=== PATIENT | female | born 2005 | race Caucasian/White ===

== ENCOUNTER 2024-11-03 15:34 | Emergency (ER) | payer OTHER, SELFPAY ==
[2024-11-03 15:49] VITALS: BP 117/74; PULSE 99; TEMP 36.8; O2SAT 100; BMI 19.9
[2024-11-03 16:28] LABS: Basophils Absolute Auto 0.1 10^3/uL (0.0-0.1); Basophils Percent Auto 0.6 % (0.2-2.0); Eosinophils Absolute Auto 0.1 10^3/uL (0.0-0.7); Eosinophils Percent Auto 1.2 % (0.9-7.0); Hematocrit 36.9 % (36.0-48.0); Immature Granulocytes Abs Auto 0.03 10^3/uL (0.00-0.03); Immature Granulocytes Pct Auto 0.3 % (0.0-0.5); Lymphocytes Absolute Auto 2.3 10^3/uL (1.2-3.8); Lymphocytes Percent Auto 21.4 % (20.5-60.0); Mean Corpuscular HGB Conc 32.5 g/dL (29.9-35.2); Mean Corpuscular Hemoglobin 29.4 pg (26.7-34.0); Mean Corpuscular Volume 90.4 fL (81.0-99.0); Mean Platelet Volume 10.6 fL (9.5-13.5); Monocytes Absolute Auto 0.7 10^3/uL (0.3-0.8); Monocytes Percent Auto 6.3 % (1.7-12.0); Neutrophils Absolute Auto 7.6 10^3/uL (1.4-6.5); Neutrophils Percent Auto 70.2 % (43.0-75.0); Platelet Count 281 10^3/uL (150-450); Red Blood Count 4.08 10^6/uL (4.20-5.40); Red Cell Distribution Width 12.3 % (11.0-15.0); White Blood Count 10.8 10^3/uL (4.0-11.0)
[2024-11-03 16:33] LABS: Bilirubin Urine NEGATIVE (NEGATIVE); Blood Urine LARGE (NEGATIVE); Clarity Urine CLOUDY (CLEAR); Color Urine LT. YELLOW (YELLOW); Glucose Urine UA NEGATIVE (NEGATIVE); Ketones Urine NEGATIVE (NEGATIVE); Leukocyte Esterase Urine SMALL (NEGATIVE); Nitrite Urine NEGATIVE (NEGATIVE); Protein Urine 100 mg/dL (NEG/TRACE); Specific Gravity Urine 1.025 (1.005-1.025)
[2024-11-03 16:39] LABS: HCG Qualitative Urine* NEGATIVE (NEGATIVE); Internal Control Within Normal Limits
[2024-11-03 16:44] LABS: WBC Urine 50-75 #/HPF (NONE SEEN)
[2024-11-03] MEDS: ONDANSETRON PF 4 MG/2 ML VIAL IV (16:44)
[2024-11-03 16:45] LABS: Bacteria Urine SMALL #/HPF (NONE SEEN); Cast Seen? NONE SEEN #/LPF (NONE SEEN); Crystals Seen? None Seen #/HPF (None Seen); Mucus Urine NONE SEEN (NONE SEEN); Squamous Epithelial Cell Urine NONE SEEN #/LPF (NONE/RARE); Urine Culture Indicated YES
[2024-11-03 16:48] LABS: Alanine Aminotransferase 15 U/L (14-59); Albumin Level 3.7 g/dL (3.4-5.0); Alkaline Phosphatase 96 U/L (46-116); Anion Gap 10.1; Aspartate Amino Transferase 12 U/L (15-37); BUN Creatinine Ratio 10.8; Bilirubin Total 0.3 mg/dL (0.2-1.0); Calcium 9.1 mg/dL (8.5-10.1); Carbon Dioxide 29.8 mmol/L (21.0-32.0); Chloride 102 mmol/L (98-107); Estimated GFR (African America >60 (>=60 mL/min/1.73m^2); Estimated GFR (Non-African Ame >60 (>=60 mL/min/1.73m^2); Globulin 3.8 g/dL; Glucose 92 mg/dL (74-106); Potassium 3.9 mmol/L (3.5-5.1); Sodium 138 mmol/L (136-145); Total Protein 7.5 g/dL (6.4-8.2)
--- NOTE | 2024-11-03 16:53 | ED_ITS ---
HPI HPI - General Adult General Chief complaint: Urogenital-Female Stated complaint: POSS UTI Time Seen by Provider: 11/03/24 15:40 Source: patient Mode of arrival: ambulance Limitations: no limitations History of Present Illness HPI narrative: 18-year-old female presents here with chief complaint of continued urinary symptoms. She had recently treated with for UTI with Macrobid. Was seen and evaluated and sent to our emergency room today from urgent care. Patient has no flank pain or tenderness on examination has no fevers. She has had some nausea from not eating earlier today. She is not toxic appearing and is not febrile. Denies a known history of states she has not been currently sexually active. patient states recently completed menses and denies vaginal discharge Related Data Previous Rx's ?Medication ?Instructions ?Recorded cephalexin 500 mg capsule 500 mg PO BID 10 days #20 caps 11/03/24 ondansetron 4 mg disintegrating 4 mg PO TID PRN nausea and 11/03/24 tablet vomiting 3 days #10 tabs Allergies Allergy/AdvReac Type Severity Reaction Status Date / Time No Known Drug Allergies Allergy Verified 11/03/24 15:55 Opioid HPI Opioid Management Most Recent Opioid Data: No Data to Display Review of Systems ROS Narrative All Systems are negative except as noted/marked.All systems reviewed and otherwise negative Exam Narrative Exam Narrative: Nurses note and vital signs reviewed and patient is not hypoxic. General: The patient appears well and in no apparent distress. Patient is resting comfortably on cart. Skin: Warm, dry, no pallor noted. There is no rash noted. Head: Normocephalic, atraumatic Eye: Normal conjunctiva, no drainage, EOMI. PERRL Ears, Nose, Mouth, and Throat: oral mucosa is moist. Nares patent. Mouth without vesicles. Ear canals patent. Tm's without Erythema Cardiovascular: Regular Rate and Rhythm Respiratory: Patient is in no distress, no accessory muscle use, lungs are clear to auscultation, no wheezing, rales or rhonchi Back: non-tender, no CVA tenderness bilaterally to percussion. GI: Normal bowel sounds, no tenderness to palpation, no masses appreciated. No rebound, guarding, or rigidity noted. Musculoskeletal: The patient has no evidence of calf tenderness, no pitting edema, symmetrical pulses noted bilaterally Neurological: A&O x4, normal speech Psychiatric: Cooperative Constitutional Vital Signs, click to edit/add: Last Vital Signs Temp 98.2 F 11/03/24 15:49 Pulse 99 H 11/03/24 15:49 Resp 16 11/03/24 15:49 BP 117/74 11/03/24 15:49 Pulse Ox 100 11/03/24 15:49 O2 Del Method Room Air 11/03/24 15:49 Course Vital Signs Vital signs: Vital Signs Temperature 98.2 F 11/03/24 15:49 Pulse Rate 99 H 11/03/24 15:49 Respiratory Rate 16 11/03/24 15:49 Blood Pressure 117/74 11/03/24 15:49 Pulse Oximetry 100 11/03/24 15:49 Oxygen Delivery Method Room Air 11/03/24 15:49 Temperature 98.2 F 11/03/24 15:49 Pulse Rate 99 H 11/03/24 15:49 Respiratory Rate 16 11/03/24 15:49 Blood Pressure 117/74 11/03/24 15:49 Pulse Oximetry 100 11/03/24 15:49 Oxygen Delivery Method Room Air 11/03/24 15:49 Medical Decision Making MDM Narrative Medical decision making narrative: 18-year-old female presents here with chief complaint of continued urinary symptoms. She had recently treated with for UTI with Macrobid. Was seen and evaluated and sent to our emergency room today from urgent care. Patient has no flank pain or tenderness on examination has no fevers. She has had some nausea from not eating earlier today. She is not toxic appearing and is not febrile. Denies a known history of states she has not been currently sexually active. patient states recently completed menses and denies vaginal discharge Positive for red blood cells as well as 10-75 WBCs. Patient placed on Macrobid previously. We will change her antibiotic to Keflex. Reasons to return to the emergency room were discussed patient also be given a prescription for Zofran. She is able to eat and drink here in the emergency room does not appear toxic. Lab work is reviewed and shows no acute abnormalities. CBC and CMP. Mom is at bedside agrees with plan of care. Differential Diagnosis Differential Diagnosis: uti, kidney stone Medical Records Medical records reviewed: Yes I reviewed the patient's medical records Lab Data Lab results reviewed: Yes I reviewed the patient's lab results Labs: Lab Results 12/06/24 12/06/24 Range/Units 16:11 16:14 WBC 10.8 (4.0-11.0) 10^3/uL RBC 4.08 L (4.20-5.40) 10^6/uL Hgb 12.0 (12.0-16.0) g/dL Hct 36.9 (36.0-48.0) % MCV 90.4 (81.0-99.0) fL MCH 29.4 (26.7-34.0) pg MCHC 32.5 (29.9-35.2) g/dL RDW 12.3 (11.0-15.0) % Plt Count 281 (150-450) 10^3/uL MPV 10.6 (9.5-13.5) fL Neut % (Auto) 70.2 (43.0-75.0) % Lymph % (Auto) 21.4 (20.5-60.0) % [place] % (Auto) 6.3 (1.7-12.0) % Eos % (Auto) 1.2 (0.9-7.0) % Baso % (Auto) 0.6 (0.2-2.0) % Neut # (Auto) 7.6 H (1.4-6.5) 10^3/uL Lymph # (Auto) 2.3 (1.2-3.8) 10^3/uL [place] # (Auto) 0.7 (0.3-0.8) 10^3/uL Eos # (Auto) 0.1 (0.0-0.7) 10^3/uL Baso # (Auto) 0.1 (0.0-0.1) 10^3/uL Abs Immat Gran (auto) 0.03 (0.00-0.03) 10^3/uL Imm/Tot Granulo (auto) 0.3 (0.0-0.5) % Sodium 138 (136-145) mmol/L Potassium 3.9 (3.5-5.1) mmol/L Chloride 102 (98-107) mmol/L Carbon Dioxide 29.8 (21.0-32.0) mmol/L Anion Gap 10.1 BUN 9.0 (6.4-19.3) mg/dL Creatinine 0.83 (0.55-1.02) mg/dL Est GFR ( Amer) >60 (>=60 mL/min/1.73m^2) Est GFR (Non-Af Amer) >60 (>=60 mL/min/1.73m^2) BUN/Creatinine Ratio 10.8 Glucose 92 (74-106) mg/dL Calcium 9.1 (8.5-10.1) mg/dL Total Bilirubin 0.3 (0.2-1.0) mg/dL AST 12 L (15-37) U/L ALT 15 (14-59) U/L Alkaline Phosphatase 96 (46-116) U/L Total Protein 7.5 (6.4-8.2) g/dL Albumin 3.7 (3.4-5.0) g/dL Globulin 3.8 g/dL Albumin/Globulin Ratio 1.0 Urine Color Lt. yellow (YELLOW) Urine Clarity Cloudy A (CLEAR) Urine pH 6.0 (5.0-9.0) Ur Specific [place] 1.025 (1.005-1.025) Urine Protein 100 A (NEG/TRACE) mg/dL Urine Glucose (UA) Negative (NEGATIVE) mg/dL Urine Ketones Negative (NEGATIVE) mg/dL Urine Occult Blood Large A (NEGATIVE) Urine Nitrite Negative (NEGATIVE) Urine Bilirubin Negative (NEGATIVE) Urine Urobilinogen 1.0 (0.2-1.0) EU/dL Ur Leukocyte Esterase Small A (NEGATIVE) Urine RBC 10-20 A (0-2) #/HPF Urine WBC 50-75 A (NONE SEEN) #/HPF Ur Squamous Epith Cells None seen (NONE/RARE) #/LPF Urine Crystals None seen (None Seen) #/HPF Urine Bacteria Small A (NONE SEEN) #/HPF Urine Casts None seen (NONE SEEN) #/LPF Urine Mucus None seen (NONE SEEN) Ur Culture Indicated? Yes Urine HCG, Qual Negative (NEGATIVE) Discharge Plan Discharge Chief Complaint: Urogenital-Female Clinical Impression: Urinary tract infection Patient Disposition: Home, Self-Care Time of Disposition Decision: 16:51 Condition: Good Prescriptions / Home Meds: New cephalexin 500 mg capsule 500 mg PO BID 10 Days Qty: 20 0RF ondansetron 4 mg tablet,disintegrating 4 mg PO TID PRN (Reason: nausea and vomiting) 3 Days Qty: 10 0RF Print Language: Greenlandic Instructions: Urinary Tract Infection in Women (ED) Referrals: Physician,Non-Staff, MD [Primary Care Provider] - 1 week
[2024-11-03] MEDS: KETOROLAC TROMETHAMINE 30 MG/ML VIAL IVP (17:01)
[2024-11-03 17:10] VITALS: BP 110/83; PULSE 82; O2SAT 100
== END 2024-11-03 17:11 | disposition home or self-care (01) ==
PROVIDERS: Physician Assistant; Emergency Provider Emergency Medicine; PCP Internal Medicine
DX: N39.0 Urinary tract infection, site not specified (principal)
CPT/HCPCS: 36415; 80053; 81001; 84703; 85025; 87086; 96374; 96375; 99284; J1885; J2405

== ENCOUNTER 2025-10-23 12:18 | Emergency (ER) | payer OTHER, SELFPAY ==
[2025-10-23 12:29] VITALS: BP 116/75; PULSE 102; TEMP 36.8; O2SAT 100; BMI 21.0
--- NOTE | 2025-10-23 12:50 | ED_ITS ---
HPI HPI - General Adult General Chief complaint: Abdominal Pain Stated complaint: 6 WEEKS BACK PAIN VOMITING Time Seen by Provider: 10/23/25 12:30 Source: patient Mode of arrival: walk-in Limitations: no limitations History of Present Illness HPI narrative: 19-year-old female presented to the emergency department for not feeling well. She is , 6 weeks. She has had some nausea and vomiting and has left lower back pain. No trauma. No vaginal bleeding. She has felt this way for the last day or 2. She is 1 para 0. Related Data Home Medications ?Medication ?Instructions ?Recorded ?Confirmed No Known Home Medications 10/23/2509/30 Allergies Allergy/AdvReac Type Severity Reaction Status Date / Time No Known Drug Allergies Allergy Verified 10/23/25 12:29 Opioid HPI Opioid Management Most Recent Opioid Data: Last Pain Scale 8 Today, 12:29 Review of Systems ROS Narrative A ten point review of systems is negative except as noted above. PFSH PFSH Social History Little interest or pleasure in doing things: not at all Feeling down, depressed, or hopeless: not at all Exam Narrative Exam Narrative: Nurses note and vital signs reviewed General:The patient appears uncomfortable. Skin:Warm, dry, no pallor noted.There is no rash noted. Head:Normocephalic, atraumatic Eye: Normal conjunctiva, no drainage Ears, Nose, Mouth, and Throat: oral mucosa is moist. Nares patent. Cardiovascular:Regular Rate and Rhythm Respiratory:Patient is in no distress, no accessory muscle use, lungs are clear to auscultation, no wheezing, rales or rhonchi Back:non-tender, no CVA tenderness bilaterally to percussion. GI: Soft and nondistended. No focal area of tenderness Musculoskeletal: No joint swelling Neurological:A&O normal speech Psychiatric:Cooperative Constitutional Vital Signs, click to edit/add: Last Vital Signs Temp 98.3 F 10/23/25 12:29 Pulse 102 H 10/23/25 12:29 Resp 16 10/23/25 12:29 BP 116/75 10/23/25 12:29 Pulse Ox 100 10/23/25 12:29 O2 Del Method Room Air 10/23/25 12:29 Course Vital Signs Vital signs: Vital Signs Temperature 98.3 F 10/23/25 12:29 Pulse Rate 102 H 10/23/25 12:29 Respiratory Rate 16 10/23/25 12:29 Blood Pressure 116/75 10/23/25 12:29 Pulse Oximetry 100 10/23/25 12:29 Oxygen Delivery Method Room Air 10/23/25 12:29 Temperature 98.3 F 10/23/25 12:29 Pulse Rate 102 H 10/23/25 12:29 Respiratory Rate 16 10/23/25 12:29 Blood Pressure 116/75 10/23/25 12:29 Pulse Oximetry 100 10/23/25 12:29 Oxygen Delivery Method Room Air 10/23/25 12:29 Medical Decision Making MDM Narrative Medical decision making narrative: The patient presented with flank pain and she has microscopic hematuria. Concern was for a kidney stone so renal ultrasound was performed because she is , approximately 6 weeks. The ultrasound is negative. She has no bleeding and I have no concern for ectopic or for miscarriage. She has no abdominal tenderness on palpation. She is feeling improved with the Zofran and the IV fluids given here and she is discharged home with a prescription for Zofran. Findings are discussed with the patient and her family. Urine culture is pending, there were no WBCs in her urine. Differential Diagnosis Differential Diagnosis: UTI, kidney stone, muscle pain Lab Data Lab results reviewed: Yes I reviewed the patient's lab results Labs: Lab Results 10/23/25 10/23/25 Range/Units 12:32 13:03 WBC 9.9 (4.0-11.0) 10^3/uL RBC 4.12 L (4.20-5.40) 10^6/uL Hgb 12.7 (12.0-16.0) g/dL Hct 35.9 L (36.0-48.0) % MCV 87.1 (81.0-99.0) fL MCH 30.8 (26.7-34.0) pg MCHC 35.4 H (29.9-35.2) g/dL RDW 11.9 (11.0-15.0) % Plt Count 276 (150-450) 10^3/uL MPV 10.3 (9.5-13.5) fL Neut % (Auto) 74.2 (43.0-75.0) % Lymph % (Auto) 18.2 L (20.5-60.0) % [place] % (Auto) 6.7 (1.7-12.0) % Eos % (Auto) 0.3 L (0.9-7.0) % Baso % (Auto) 0.4 (0.2-2.0) % Neut # (Auto) 7.3 H (1.4-6.5) 10^3/uL Lymph # (Auto) 1.8 (1.2-3.8) 10^3/uL [place] # (Auto) 0.7 (0.3-0.8) 10^3/uL Eos # (Auto) 0.0 (0.0-0.7) 10^3/uL Baso # (Auto) 0.0 (0.0-0.1) 10^3/uL Abs Immat Gran (auto) 0.02 (0.00-0.03) 10^3/uL Imm/Tot Granulo (auto) 0.2 (0.0-0.5) % Sodium 135 L (136-145) mmol/L Potassium 3.6 (3.5-5.1) mmol/L Chloride 100 (98-107) mmol/L Carbon Dioxide 25.1 (21.0-32.0) mmol/L Anion Gap 13.5 BUN 10.0 (7.0-18.0) mg/dL Creatinine 0.66 (0.55-1.02) mg/dL Est GFR ( Amer) >60 (>=60 mL/min/1.73m^2) Est GFR (Non-Af Amer) >60 (>=60 mL/min/1.73m^2) BUN/Creatinine Ratio 15.2 Glucose 102 (74-106) mg/dL Calcium 9.4 (8.5-10.1) mg/dL HCG, Quant 6921 mIU/mL Urine Color Yellow (YELLOW) Urine Clarity Sl cloudy (CLEAR) Urine pH 6.0 (5.0-9.0) Ur Specific [place] 1.025 (1.005-1.025) Urine Protein 30 A (NEG/TRACE) mg/dL Urine Glucose (UA) Negative (NEGATIVE) mg/dL Urine Ketones 15 A (NEGATIVE) mg/dL Urine Occult Blood Large A (NEGATIVE) Urine Nitrite Negative (NEGATIVE) Urine Bilirubin Small A (NEGATIVE) Urine Urobilinogen 0.2 (0.2-1.0) EU/dL Ur Leukocyte Esterase Negative (NEGATIVE) Urine RBC 10-20 A (0-2) #/HPF Urine WBC 0-2 A (NONE SEEN) #/HPF Ur Squamous Epith Cells Rare (NONE/RARE) #/LPF Urine Crystals None seen (None Seen) #/HPF Urine Bacteria Small A (NONE SEEN) #/HPF Urine Casts None seen (NONE SEEN) #/LPF Urine Mucus Moderate A (NONE SEEN) Ur Culture Indicated? Yes-[facility] [place] Imaging Data Renal ultrasound: Radiologist's impression: ITS Impressions Renal Ultrasound 10/23/25 13:09 IMPRESSION: No acute findings. Impression dictated by: Remigio Delgado Jr., D.O. 10/23/2025 2:14 PM Dictation Location: [employer] Electronically authenticated by: [id number] Y Date: 10/23/2025 14:14 Discharge Plan Discharge Chief Complaint: Abdominal Pain Clinical Impression: Low back pain, Microscopic hematuria Patient Disposition: Home, Self-Care Time of Disposition Decision: 14:37 Condition: Good Mode of Transportation: Private Vehicle Prescriptions / Home Meds: No Action No Known Home Medications Print Language: Welsh Instructions: Hematuria (ED), Acute Low Back Pain (ED) Referrals: MIGUEL DENNEY [Primary Care Provider, Family Practice] - 1 week
[2025-10-23 12:51] LABS: Glucose Urine UA NEGATIVE (NEGATIVE)
[2025-10-23 12:59] LABS: Cast Seen? NONE SEEN #/LPF (NONE SEEN); Crystals Seen? None Seen #/HPF (None Seen)
[2025-10-23 13:00] LABS: Urine Culture Indicated YES-FRMC
[2025-10-23] MEDS: 0.9 % SODIUM CHLORIDE 1,000 ML 1000 ML IV (13:09)
--- NOTE | 2025-10-23 13:09 | US_ITS ---
[place] [address] Patient Name: GARY CLIFFORD MRN: [id number] date: 2005 Sex: F Assigned Patient Location: ER Current Patient Location: ED.MAIN Accession/Order Number: [id number] Exam Date: 10/23/2025 13:10 Report Date: 10/23/2025 14:14 At the request of: SANDRA SANCHEZ MD Procedure: US renal BI BILATERAL RENAL AND BLADDER ULTRASOUND CLINICAL HISTORY: Flank pain, hematuria COMPARISON: None FINDINGS: Estimation of renal size is approximately 10.2 cm on the right and 12.4 cm on the left. No contour deforming mass, shadowing stone or hydronephrosis. The urinary bladder is partially distended with a volume of 11.5 ml. No shadowing stone or focal lesion. US/US renal BI IMPRESSION: No acute findings. Impression dictated by: Remigio Delgado Jr., DDottyODotty 10/23/2025 2:14 PM Dictation Location: [place] [address] Electronically authenticated by: [id number] Y Date: 10/23/2025 14:14
[2025-10-23 13:12] LABS: Hematocrit 35.9 % (36.0-48.0); Hemoglobin 12.7 g/dL (12.0-16.0); Immature Granulocytes Abs Auto 0.02 10^3/uL (0.00-0.03); Immature Granulocytes Pct Auto 0.2 % (0.0-0.5); Lymphocytes Absolute Auto 1.8 10^3/uL (1.2-3.8); Mean Corpuscular HGB Conc 35.4 g/dL (29.9-35.2); Mean Corpuscular Hemoglobin 30.8 pg (26.7-34.0); Mean Corpuscular Volume 87.1 fL (81.0-99.0); Platelet Count 276 10^3/uL (150-450); Red Blood Count 4.12 10^6/uL (4.20-5.40); White Blood Count 9.9 10^3/uL (4.0-11.0)
[2025-10-23 13:27] LABS: Anion Gap 13.5; Blood Urea Nitrogen 10.0 mg/dL (7.0-18.0); Calcium 9.4 mg/dL (8.5-10.1); Carbon Dioxide 25.1 mmol/L (21.0-32.0); Chloride 100 mmol/L (98-107); Estimated GFR (African America >60 (>=60 mL/min/1.73m^2); Estimated GFR (Non-African Ame >60 (>=60 mL/min/1.73m^2); Glucose 102 mg/dL (74-106); Potassium 3.6 mmol/L (3.5-5.1); Sodium 135 mmol/L (136-145)
--- OUTSIDE RECORDS SUMMARY | 2025-10-23 13:48 | XMS_ITS | Clinical Summary ---
Author Organization [employer] tem Address [id number] [address] [place] [address] Care Team Providers Care Water Operator Name Role Phone Bruce Reddy MD Primary Care Provider [phone] Allergies No known active allergies Medications MedicationSigDispense QuantityRefillsLast FilledStart DateEnd DateStatus ascorbic acid (VITAMIN C ORAL) Take by mouth. One tablet dailyActive levocetirizine (XYZAL) 5 mg tablet Take 1 tablet (5 mg total) by mouth every evening.Active escitalopram (LEXAPRO) 20 mg tablet Indications:AnxietyTake 1 tablet (20 mg total) by mouth in the morning. 30 tablet 5Active escitalopram (LEXAPRO) 10 mg tablet Indications:AnxietyTake 1 tablet (10 mg total) by mouth in the morning. 30 tablet Discontinued Active Problems ProblemNoted DateDiagnosed DateSeizure-like mlevqfjn70/26/2021hildhood absence ocqwtzvx50/19/2021 Encounters DateTypeDepartmentCare TbwdAguilwakjos32/25/2025Telephone [facility] [address] [place] [address] Bruce Reddy MD 10/12/2025Telephone [facility] [address] [place] [address] Emerita Fountain RMA 10/08/2025Telephone [facility] [address] [place] [address] Bruce Reddy MD 08/23/20257998Ujlzlg26/29/2025 8:30 AM EDTOffice Visit [facility] [address] [place] [address] Bruce Reddy MD Anxiety (Primary Dx)07/26/2025Travelfrom Last 3 Months Immunizations ImmunizationAdministration DatesNext XjeIUoD0304/15/2010,03/09/2006,07/16/2005, 05/14/2005,02/23/2005Hepatitis A1,05/07/2011Hepatitis B007/16/2005, 05/14/2005,02/23/2005,2004HiB12/02/2005,07/16/2005,05/14/2005,02/23/2005 IPV04/15/2010,07/16/2005,05/14/2005,02/23/2005Influenza, Osdidfzocfe41/09/2015 MMR04/15/2010,12/02/2005Meningococcal Ygiowbczx20/18/2022,05/27/2017Pneumococcal Ljyskwkpj22/11/2006,07/16/2005,05/14/2005,02/23/2005Tdap05/27/2017Varicella 04/15/2010,03/09/2006 Family History Medical HistoryRelationNameCommentsThyroid IssuesMaternal GrandmotherOtherSister NCSArrhythmiaNeg HxAsthmaNeg HxClotting disorderNeg HxDiabetesNeg HxHeart attack Neg HxHeart defectNeg HxHigh CholesterolNeg HxHypertensionNeg HxSeizuresNeg Hx StrokeNeg HxSudden deathNeg HxRelationNameStatusCommentsMaternal Grandmother Sister Social History Tobacco UseTypesPacks/DayYears UsedDateSmoking Tobacco: NeverPassive Smoke Exposure: NeverSmokeless Tobacco: Never Tobacco Cessation:Counseling Given: No Alcohol UseStandard Drinks/WeekCommentsNever0 (1 standard drink = 0.6 oz pure alcohol)AUDIT-CAnswerDate RecordedQ1: How often do you have a drink containing alcohol?Never12/30/2020verage Number of DrinksNot on file12/30/2020Frequency of Binge DrinkingNot on file1PHQ-2AnswerDate RecordedTotal Score6 07/27/2025hildcareAnswerDate YtwsfdclTemllavfnAzckgwm89/12/2019EmploymentAnswer Date BkemtbgcLjxupdrwfgFbvdcep13/12/2019Hunger ScreeningAnswerDate Recorded Within the past 12 months we worried whether our food would run out before we got money to buy more.Never True07/27/2025Within the past 12 months the food we bought just didn't last and we didn't have money to get more.Never True 07/27/2025Purpose - LifeAnswerDate RecordedPurpose and direction in lifeUnknown 1CommentsNoSex and Gender InformationValueDate RecordedSex Assigned at BirthNot on fileLegal SakVuzfzw35/06/2015 12:02 PM EDTGender IdentityNot on fileSexual OrientationNot on file Last Filed Vital Signs Vital SignReadingTime TakenCommentsBlood Kckvbdjc372/62007/27/2025 8:23 AM EDT Alvcp634907/27/2025 8:23 AM OZBYpnlzuzgljy28.7 ??C (98 ??F)07/27/2025 8:23 AM EDT Respiratory Uhzm908301/21/2024 12:27 AM ESTOxygen Nopnlowgll62%07/27/2025 8:23 AM EDTInhaled Oxygen Concentration--Tqhmcl21.8 kg (134 lb)07/27/2025 8:23 AM EDT Jhheuu412.6 cm (5' 6 )07/27/2025 8:23 AM EDTBody Mass Index21.63007/27/2025 8:23 AM EDT Plan of Treatment Health MaintenanceDue DateLast DoneCommentsCOVID-19 Vaccine ( season) /, 08/05/2021Influenza Srxijbc68/09/2015Adult BMI Swneuwsmr02/Depression Lmkugvcja52/Tobacco Kxazhfvyj19/DTaP,Tdap and Td Vaccines (7 - Td or Tdap) , 04/15/2010, 04/15/2010, Additional history exists Medical Devices Not on file Insurance * Guarantor: William Rosas TypeRelation to PatientDate of BirthPhone Billing AddressPersonal/EtukpsQadxue34/10/1984 [facility] [place] [address] * Guarantor: Esteban Rosas TypeRelation to PatientDate of PhoneBilling AddressPersonal/UtcyptBalfjg39/22/1982 [facility] [address] Care Teams Team MemberRelationshipSpecialtyStart DateEnd Date Bruce Reddy MD [address] [place] [address], [address] [place], [place] [address] PCP - NejwarlLiagoruhsy44/26/18
--- OUTSIDE RECORDS SUMMARY | 2025-10-23 13:48 | XMS_ITS | Encounter Summary ---
Author Organization [facility] [employer] [facility] tem Address [id number] [address] [place] [address] Care Team Providers Care Chef Manager Name Role Phone Bruce Reddy MD Primary Care Provider [phone] Encounter Details DateTypeDepartmentCare Team (Latest Contact Info)Evaakqertgi98/14/2025Telephone [facility] [address] [place] [address] Emerita Fountain RMA Social History Tobacco UseTypesPacks/DayYears UsedDateSmoking Tobacco: NeverPassive Smoke Exposure: NeverSmokeless Tobacco: NeverAlcohol UseStandard Drinks/WeekComments Never0 (1 standard drink = 0.6 oz pure alcohol)AUDIT-CAnswerDate RecordedQ1: How often do you have a drink containing alcohol?Never12/30/2020verage Number of DrinksNot on file12/30/2020Frequency of Binge DrinkingNot on file1PHQ-2 AnswerDate RecordedTotal Eojhm213/29/2025ChildcareAnswerDate RecordedChildcare Ysyfsms4905/10/2019EmploymentAnswerDate LuviwvwiQxoucpjwfaTljdcvb49/12/2019Hunger ScreeningAnswerDate RecordedWithin the past 12 months we worried whether our food would run out before we got money to buy more.Never True07/27/2025Within the past 12 months the food we bought just didn't last and we didn't have money to get more.Never True07/27/2025Purpose - LifeAnswerDate RecordedPurpose and direction in deorXlqsefv78/26/2021CommentsNoSex and Gender Information ValueDate RecordedSex Assigned at BirthNot on fileLegal CckHdmqww15/06/2015 12:02 PM EDTGender IdentityNot on fileSexual OrientationNot on filedocumented as of this encounter Miscellaneous Notes * Telephone Encounter - ERIN Borges - 10/12/2025 9:14 AM EST Patient called stating she just found out she is . She wanted to know if it is safe to continue her lexapro or if she needs to discontinue that. Please advise. * Telephone Encounter - Bruce Reddy MD - 10/12/2025 9:14 AM EST It would be best to discontinue it * Telephone Encounter - ERIN Borges - 10/12/2025 9:14 AM EST Patient notified and verbalized understanding. She has an appointment scheduled with Dr. Huffman. documented in this encounter Plan of Treatment Not on file documented as of this encounter Visit Diagnoses Not on filedocumented in this encounter Additional Health Concerns AssessmentNoted TimePHQ-9 Depression Total Score: 608 8:20 AM EDT documented as of this encounter Care Teams Team MemberRelationshipSpecialtyStart DateEnd Date Bruce Reddy MD [address] [place] [address], [address] [place] [address] PCP - BkwtqykMdqzffjtqh48/26/18documented as of this encounter
--- OUTSIDE RECORDS SUMMARY | 2025-10-23 13:48 | XMS_ITS | Encounter Summary ---
Author Organization [facility] tem Address [id number] [address] [place] [address] Care Team Providers Care Senior Medical Transcriptionist Name Role Phone Bruce Reddy MD Primary Care Provider [phone] Encounter Details DateTypeDepartmentCare Team (Latest Contact Info)Zbzkpmejgrr17/10/2025Telephone [facility] Physicians Internal Medicine/Pediatrics [address] [place] [address] [address] [place] [phone] Bruce Reddy MD [address] [place] [address], [address] [place], [place] [id number] Social History Tobacco UseTypesPacks/DayYears UsedDateSmoking Tobacco: NeverPassive Smoke Exposure: NeverSmokeless Tobacco: NeverAlcohol UseStandard Drinks/WeekComments Never0 (1 standard drink = 0.6 oz pure alcohol)AUDIT-CAnswerDate RecordedQ1: How often do you have a drink containing alcohol?Never1Average Number of DrinksNot on file12/30/2020Frequency of Binge DrinkingNot on file12/30/2020HQ-2 AnswerDate RecordedTotal [id number] RecordedChildcare Gepgfru1605/10/2019EmploymentAnswerDate UlviaccpCiyeuwgbwnMzyhzim07/12/2019Hunger ScreeningAnswerDate RecordedWithin the past 12 months we worried whether our food would run out before we got money to buy more.Never True07/27/2025Within the past 12 months the food we bought just didn't last and we didn't have money to get more.Never True07/27/2025Purpose - LifeAnswerDate RecordedPurpose and direction in ykihWrrhxcy01/26/2021CommentsNoSex and Gender Information ValueDate RecordedSex Assigned at BirthNot on fileLegal UtrHrnmno83/06/2015 12:02 PM EDTGender IdentityNot on fileSexual OrientationNot on filedocumented as of this encounter Miscellaneous Notes * Telephone Encounter - Alla Gonzalez - 10/08/2025 1:00 PM EST Wilfrido came in and asked if her Lexapro could be increased, she doesn't feel like it is strong enough. Please advise * Telephone Encounter - Bruce Reddy MD - 10/08/2025 1:00 PM EST Script for 20 mg tablets (1 daily) sent to pharmacy. * Telephone Encounter - Alla Gonzalez - 10/08/2025 1:00 PM EST Attempted to call patient it sounded like the phone would picking table worker and then it would be air. This happened 2 times. Will attempt to call in the morning * Telephone Encounter - Alla Gonzalez - 10/08/2025 1:00 PM EST Wilfrido called, she saw she missed a call from us. I told her that Dr Reddy sent in an increase in her medicine, she was appreciative of that. documented in this encounter Plan of Treatment Not on file documented as of this encounter Visit Diagnoses Diagnosis Anxiety Anxiety state, unspecified documented in this encounter Additional Health Concerns AssessmentNoted TimePHQ-9 Depression Total Score: 8:20 AM EDT documented as of this encounter Care Teams Team MemberRelationshipSpecialtyStart DateEnd Date Bruce Reddy MD [address] [place] [address], [address] [place] [address] PCP - AhnfgtyXewohbvjsz49/26/18documented as of this encounter
--- OUTSIDE RECORDS SUMMARY | 2025-10-23 13:48 | XMS_ITS | Clinical Summary ---
Author Organization [facility] Address [address] [place] [address] Care Team Providers Care Regulatory Affairs Strategy Specialist Name Role Phone Unavailable Primary Care Provider Unavailabl e Social History Tobacco UseTypesPacks/DayYears UsedDateSmoking Tobacco: Never Assessed CommentsUnknownSex and Gender InformationValueDate RecordedSex Assigned at Not on fileLegal EqgCnbaua86/15/2023 11:46 PM EDTGender IdentityNot on file Sexual OrientationNot on file Plan of Treatment DateTypeDepartmentCare Team (Latest Contact Info)Ahbxoqcibrh06/05/2025 9:00 AM ESTAncillary Procedure [facility] [address] [place] [address] 11/02/2025 9:30 AM ESTInitial [facility] [address] [place] [address] 11/13/2025 1:00 PM ESTOffice Visit [facility] [address] [facility] [place] [phone] Sathya Huffman DO [address] [place], [facility] Insurance * Guarantor: Wilfrido Clifford TypeRelation to PatientDate of BirthPhone Billing AddressPersonal/PtdmqxSvcp2004 [address] [place] [address]
--- OUTSIDE RECORDS SUMMARY | 2025-10-23 13:48 | XMS_ITS | Encounter Summary ---
Author Organization [facility] tem Address [id number] [address] 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 Name Role Phone Bruce Reddy MD Primary Care Provider [phone] Encounter Details DateTypeDepartmentCare Team (Latest Contact Info)Njgeslztmcq67/25/2025Telephone [facility] Physicians Internal Medicine/Pediatrics [address] [place] [address] 1 [place] [phone] Bruce Reddy MD [address] [place] [address], [address] [place], [place] [phone] Social History Tobacco UseTypesPacks/DayYears UsedDateSmoking Tobacco: NeverPassive Smoke Exposure: NeverSmokeless Tobacco: NeverAlcohol UseStandard Drinks/WeekComments Never0 (1 standard drink = 0.6 oz pure alcohol)AUDIT-CAnswerDate RecordedQ1: How often do you have a drink containing alcohol?Never1Average Number of DrinksNot on file12/30/2020Frequency of Binge DrinkingNot on file12/30/2020HQ-2 AnswerDate RecordedTotal [id number] RecordedChildcare Idxeafw0705/10/2019EmploymentAnswerDate OfijgiefZtbfaigeifCsfzulk32/12/2019Hunger ScreeningAnswerDate RecordedWithin the past 12 months we worried whether our food would run out before we got money to buy more.Never True07/27/2025Within the past 12 months the food we bought just didn't last and we didn't have money to get more.Never True07/27/2025Purpose - LifeAnswerDate RecordedPurpose and direction in gponQspytiv76/26/2021CommentsNoSex and Gender Information ValueDate RecordedSex Assigned at BirthNot on fileLegal VfwAydnja86/06/2015 12:02 PM EDTGender IdentityNot on fileSexual OrientationNot on filedocumented as of this encounter Miscellaneous Notes * Telephone Encounter - Alla Gonzalez - 10/23/2025 10:15 AM EST Wilfrido called, she is 6 weeks and has an appt in Oct for OB. She is wondering what she jamie to keep food down? Emetrol? Please advise * Telephone Encounter - Bruce Reddy MD - 10/23/2025 10:15 AM EST It is not that I wish to be unhelpful, but management of emesis in would fall under the care of obstetrics. documented in this encounter Plan of Treatment Not on file documented as of this encounter Visit Diagnoses Not on filedocumented in this encounter Additional Health Concerns AssessmentNoted TimePHQ-9 Depression Total Score: 608 8:20 AM EDT documented as of this encounter Care Teams Team MemberRelationshipSpecialtyStart DateEnd Date Bruce Reddy MD [address] [place] [address], [address] [place] [address] PCP - JfzxjveFeincwwfwx97/26/18documented as of this encounter
--- OUTSIDE RECORDS SUMMARY | 2025-10-23 13:52 | XMS_ITS | CCD ---
Author Organization [facility] CliniSynd Care Team Providers Care Bookkeeper Name Role Phone Tabitha Narvaez Unavailable Unavailable Tabitha Narvaez Unavailable Unavailable No Doctor Assigned, Nodr Unavailable Unavail able Tabitha Narvaez Unavailable Unavailable No Doctor Assigned, Nodr Unavailable Unavail able JOSEFA SANCHEZ Admitting Unavailable JOSEFA SANCHEZ Attending Unavailable STANISLAV KWON Consulting Unavailable ROSAS JERRY Consulting Unavailable GREG Greer Attending Provider [phone] ARNALDO HYMAN Attending Unavaila MIGUEL Villegas Referring Unavailable MIGUEL DENNEY Primary Care Unavailable ARNALDO HYMAN Referring Unavaila ble MIGUEL DENNEY Primary Care Unavailable ARNALDO HYMAN Referring Unavaila MIGUEL Villegas Primary Care Unavailable Miguel Denney MD Primary Care Provider MIGUEL DENNEY Primary Care Unavailable Douglas PACKranthi Attending Unavailable Kranthi Allen Admitting Unavailable MIGUEL DENNEY Referring Unavailable MIGUEL DENNEY Primary Care Unavailable MIGUEL DENNEY Primary Care Unavailable HARPAL RALPH Attending Unavailable MIGUEL DENNEY Attending Unavailable MIGUEL DENNEY Referring Unavailable MIGUEL DENNEY Primary Care Unavailable Miguel Denney MD Primary Care Provider MIGUEL DENNEY Attending Unavailable MIGUEL DENNEY Referring Unavailable MIGUEL DENNEY Primary Care Unavailable MIGUEL EDNNEY Attending Unavailable MIGUEL DENNEY Referring Unavailable MIGUEL DENNEY Primary Care Unavailable MIGUEL DENNEY Attending Unavailable MIGUEL DENNEY Referring Unavailable MIGUEL DENNEY Primary Care Unavailable MIGUEL DENNEY Attending Unavailable MIGUEL DENNEY Referring Unavailable MIGUEL DENNEY Primary Care Unavailable Ivis Nunn APRN Attending Provider Miguel Denney MD Primary Care Provider Ivis Nunn Attending Unavailable Ivis Nunn Admitting Unavailable Ivis Nunn Attending Unavailable Ivis Nunn Admitting Unavailable Miguel Denney Primary Care Unavailable Miguel Denney MD Primary Care Provider Allergies Allergy ClassificationReported Allergen(s)Allergy TypeDate of OnsetReaction(s) Facility (1 source)No Known Medication Allergies; Translations: [No Known Medication Allergies]Propensity to adverse reactions to drug (disorder)[facility] Repository Medications Current Medications MedicationDrug Class(es)DatesSig (Normalized)Sig (Original)Ascorbic Acid (7 sources)Vitamin Ctake 1 tablet by mouth once dailyascorbic acid (VITAMIN C ORAL) Take by mouth. One tablet daily Activeascorbic acid (VITAMIN C ORAL) Take by mouth. Activeascorbic acid (VITAMIN C ORAL) Take by mouth. 0 Active azithromycin 250 mg oral tablet (1 source)Macrolide AntimicrobialStart: 04-04-2025 End: 02-85-9428adwehpnecsgy (ZITHROMAX) 250 mg tablet Indications: Acute non- recurrent sinusitis, unspecified location Take 2 tablets the first day, then 1 tablet daily for 4 days. 6 tablet 04/04/2025 04/08/2025 Activecefadroxil 100 mg/ml oral suspension (1 source)Cephalosporin AntibacterialStart: 08-25-2024 End: 34-42-4531aggw 10 mL by mouth in the morningcefaDROXil (DURICEF) 500 mg/5 mL suspension Indications: Tonsillitis Take 10 mL (1,000 mg total) bymouth in the morning for 10 days. 100 mL 08/25/2024 09/04/2024 Activecephalexin 500 mg oral capsule (1 source)Cephalosporin AntibacterialStart: 06-21-2025 End: 44-95-9107hawi 1 capsule by mouth three times dailyCEPHalexin (KEFLEX) 500 mg capsule Indications: Recurrent UTI Take 1 capsule (500 mg total) by mouth 3 (three) times a day for 5 days. 15 capsule 06/21/2025 06/26/2025 Active doxycycline hyclate 100 mg oral capsule (2 sources)Tetracycline-class DrugStart: 53-24-8473yzvf 1 capsule by mouth twice dailyescitalopram 20 mg oral tablet (3 sources)Serotonin Reuptake InhibitorStart: 39-65-2836ldpf 1 tablet by mouth in the morningescitalopram (LEXAPRO) 20 mg tablet Indications: Anxiety Take 1 tablet (20 mg total) by mouth in the morning. 30 tablet 1 10/08/2025 Active Start: 07-27-2025 End: 36-72-7192biya 1 tablet by mouth in the morningescitalopram (LEXAPRO) 10 mg tablet Indications: Anxiety Take 1 tablet (10 mg total) by mouth in the morning. 30 tablet 2 07/27/2025 10/08/2025 Discontinuedlevocetirizine dihydrochloride 5 mg oral tablet (7 sources)Histamine-1 Receptor Antagonisttake 1 tablet by mouth once daily in the eveninglevocetirizine (XYZAL) 5 mg tablet Take 1 tablet (5 mg total) by mouth every evening. Activenitrofurantoin, macrocrystals 25 mg / nitrofurantoin, monohydrate 75 mg oral capsule (1 source)Nitrofuran AntibacterialStart: 06-18-2025 End: 05-58-4732dozj 1 capsule by mouth in the morning, then take 1 capsule by mouth at bedtimenitrofurantoin, macrocrystal-monohydrate, (MACROBID) 100 mg capsule Take 1 capsule (100 mg total) by mouth in the morning and 1 capsule (100 mg total) before bedtime. 06/18/2025 06/25/2025 ActivepredniSONE 20 mg oral tablet (1 source)Start: 04-04-2025 End: 68-91-9151ukpq 2 tablets by mouth in the morningpredniSONE (DELTASONE) 20 mg tablet Indications: Seasonal allergic rhinitis due to pollen Take 2 tablets (40 mg total) by mouth in the morning for 5 days. 10 tablet 04/04/2025 04/09/2025 Activesulfamethoxazole 800 mg / trimethoprim 160 mg oral tablet (2 sources)Dihydrofolate Reductase Inhibitor Antibacterial, Sulfonamide AntimicrobialStart: 30-55-4194rawj 1 tablet by mouth every twelve hours Completed/Discontinued Medications MedicationDrug Class(es)DatesSig (Normalized)Sig (Original)amoxicillin 80 mg/ml oral suspension (2 sources)Penicillin-class AntibacterialStart: 08-13-2024 End: 19-66-0903usir 500 mg by mouth twice dailyAmoxicillin 400 mg/5 mL suspension for reconstitution Discontinued 500 MG PO Twice daily 125 10 Jul 12:00am November 03, 2024 3:46pmondansetron 4 mg disintegrating oral tablet (2 sources)Serotonin-3 Receptor AntagonistStart: 08-13-2024 End: 60-58-7262cbkf 1 tablet by mouth every eight hours as needed for nausea and vomitingOndansetron 4 mg tablet,disintegrating Discontinued 4 MG PO Every 8 hours as needed for nausea and vomiting 10 August 13, 2024 12:00am November 03, 2024 3:46pm Problems Active Problems Problem ClassificationProblemDateDocumented DateEpisodic/ChronicAbdominal pain (2 sources)Flank pain; Translations: [Unspecified abdominal pain]11-03-2024 EpisodicAdministrative/social admission (1 source)Persons encountering health services in other specified circumstances; Translations: [Persons encountering health services in other specified circumstances]Onset: 49-58-9235TgqkjawfJrameld disorders (5 sources)Mental health problem; Translations: [Anxiety]Onset: 11-20-2024 98-46-9570HvxonmhAsbsvrr and circulatory congenital anomalies (1 source)Congenital abnormality of ascending aorta; Translations: [Congenital malformation of aorta unspecified]75-42-2432BvfkdqsTxyhvwmw; convulsions (10 sources)Epilepsy; Translations: [Epilepsy, unspecified, not intractable, without status epilepticus]Onset: 642235-78-4086RaufngsRjwhinlt cause codes: Natural/environment (1 source)Other and unspecified overexertion or strenuous movements or postures, initial encounter; Translations: [OTH AND UNS OVREXRT/STRN MVMT/POS INT]Onset: 11-68-0464Mkpeqnu system congenital anomalies (2 sources)Familial dysautonomia []; Translations: [Disorder of autonomic nervous system]Onset: 718342-84-6785CaonigsWmlfc connective tissue disease (3 sources)Pain in right foot; Translations: [PAIN IN RIGHT FOOT]Onset: 87-12-8578ZvknfmvvKramw ear and sense organ disorders (2 sources)Cellulitis of left external ear; Translations: [Cellulitis of left external ear]59-89-0392SufxpulbEjrkn ear and sense organ disorders (1 source)Cellulitis of left external ear; Translations: [Cellulitis of left external ear]Onset: 02-00-1506FpgtctytYnkrg nervous system disorders (2 sources)Disorder of autonomic nervous exrhlu85-56-9315FyfnkdrRohfy upper respiratory disease (1 source)Allergic rhinitis due to pollen; Translations: [Allergic rhinitis due to pollen]31-25-2801WeeqvbkWhwtv upper respiratory disease (1 source)Allergic rhinitis due to pollen; Translations: [Allergic rhinitis due to pollen]Onset: 86-84-9852IuqgalcWhhyy upper respiratory infections (5 sources)Viral upper respiratory tract infection; Translations: [Acute upper respiratory infection, unspecified]Onset: 695846-00-8316ZdehucurGahirmv and strains (1 source)Unspecified sprain of right foot, initial encounter; Translations: [UNSPECIFIED SPRAIN RT FOOT INITIAL]Onset: 24-44-4982XqxvlgkwTasqnhekmaim (1 source)DysautonomiaOnset: 16-39-5192Poesoqnxoddn (1 source)OverdoseOnset: 75-74-4150Dftmbjxexxsm (1 source)Sinus ProblemOnset: 20-24-8785Dokkwnt tract infections (3 sources)Recurrent urinary tract infection; Translations: [Urinary tract infection, site not specified]10-59-8137DtfhgetkCkjoh infection (2 sources)Disease caused by 2018-nCoV; Translations: [COVID-19]08-13-2024 EpisodicViral infection (1 source)Disease caused by 2019-nCoVOnset: 08-25-2024 Past or Other Problems Problem ClassificationProblemDateDocumented DateEpisodic/ChronicAcute and chronic tonsillitis (3 sources)Acute tonsillitis, unspecified; Translations: [Tonsillitis]Onset: 180479-00-9011IlcwtgmoRusjizaz; convulsions (7 sources)Neurological finding; Translations: [Unspecified convulsions]Onset: 975482-08-5326CxkmfskkZzaivbxbydrhe symptoms and ill-defined conditions (1 source)Dysuria; Translations: [Dysuria]Onset: 75-37-1394HtqvusakRhnn disorders (7 sources)Mood disordersOnset: 06-27-2021 Resolved: Nausea and vomiting (1 source)NauseaOnset: 92-15-3694EbjvkopkQkszx lower respiratory disease (1 source)Shortness of breath; Translations: [Shortness of breath]Onset: 09-72-0271QszuyzzgMwwsw lower respiratory disease (1 source)Dyspnea; Translations: [Shortness of breath]87-54-7383Kcmtuzeb Results Test NameValueInterpretationReference RangeFacilityAerobic Cultureon 08-23-2025 Aerobic CultureORGANISM: Staphylococcus aureus (O:STAAUR) Quantity of Growth Heavy Growth No Anaerobes Isolated 3 Days Gram Stain Result 3+ Gram Positive Cocci 2+ White Blood Cells Aerobic REAGAN Charge (PCMIC38) SUSCEPTIBILITY ORGANISM: O:STAAUR ANTIBIOTIC INTERPRETATION REAGAN Azithromycin R >4 Ceftaroline S <0.5 Ciprofloxacin S <1 Clindamycin R 0.5 Daptomycin S 1 Levofloxacin S <1 Linezolid S 4 Oxacillin S 0.5 Penicillin R >2 Tetracycline S <4 Trimethoprim/Sulfamethoxazole S <0.5 Vancomycin S 1 S = SUSCEPTIBLE I = INTERMEDIATE R = RESISTANT BLANK = DATA NOT AVAILABLE, OR DRUG NOT ADVISABLE OR TESTED R* = RESISTANCE DUE TO EXTENDED SPECTRUM BETA-LACTAMASES ESBL = EXTENDED SPECTRUM BETA-LACTAMASE TFG = THYMIDINE-DEPENDENT STRAIN MARAL = BETA-LACTAMASE POSITIVE IB = INDUCIBLE BETA-LACTAMASE. APPEARS IN PLACE OF 'S' WITH SPECIES KNOWN TO POSSESS INDUCIBLE BETA-LACTAMASES. POTENTIALLY THEY MAY BECOME RESISTANT TO ALL B-LACTAM DRUGS. PERFORMED BY: [address] [address] PATHOLOGIST KEEPER HELPER PAYAL MONTERO M.D.[facility] Physician GroupComment on above: Performed By: #### AERC, GS #### [address] [address] USAGram Stainon 96-77-1573Omqosboteez observation Gram stain Nom (Unsp spec)Gram Stain Result 3+ Gram Positive Cocci 2+ White Blood Cells PERFORMED BY: [place] [id number] PATHOLOGIST KEEPER HELPER PAYAL MONTERO M.D.[facility] Physician GroupComment on above: Performed By: #### AERC, GS #### [place] [id number] USAGram stain microscopyOrdered By: Ivis Nunn on 14-68-1095Mfqnzuynimk observation Gram stain Nom (Unsp spec)[facility] HospitalUrine Cultureon 22-60-3894Ulqhxrtn identified Cx Nom (U)>100,000 colonies/ml mixed bacterial skin contaminants 2 Days PERFORMED BY: [place] [address] PATHOLOGIST KEEPER HELPER BECCA STEINER M.D.[facility] Physician GroupComment on above: Performed By: #### CUU #### [place] [id number] USACoding Summaryon 43-24-4044Qpbucg SummaryMLBase 64 RashmjdrRHf1iLj+PGhlYWQ+ZP1CMEIsE17shAUpmT2nZ7BETVrEXfmrIWNYLNxUIoNcoiOlCU1wnBKp ZXJu [file] YXB (more content not included)...[facility] Urineon 10-25-2024 UrineUrine Culture ordered as a result of parameters set on specific urine dip and urine microsopic results. >100,000 cfu/ml Staphylococcus saprophyticus ORGANISM Stasap SUSCEPTIBILITY ORGANISM ID: 1 ANTIBIOTIC INTERPRETATION REAGAN STATUS ORGANISM StasapStasap Amox/Cla R <=4/2 Verified Amp R <=2 Verified Amp/Sul R <=8/4 Verified Ceftri R <=8 Verified Cipro S <=1 Verified Clinda <=0.5 Verified Eryth <=0.5 Verified Gent S <=4 Verified Levo S <=1 Verified Linez S 2 Verified Nitro S <=32 Verified Ox R 0.5 Verified Pen R 0.12 Verified Rif S <=1 Verified Tetra S <=4 Verified Tri/Sulf S <=0.5/9.5 Verified Vanc S 1 VerifiedLima Memorial HospitalComment on above:Performed By: #### [id number], [id number], [id number], [id number] #### [facility] (DEFAULT) [address] [place] [address] [id number] Clinical Summaryon [id number] Clinical Summary [facility] ? Urgent Care [address] [place] [address] [id number] Clinical Summary PERSON INFORMATION Name: GARY CLIFFORD Age: 18 Years Sex: FEMALE : 2005 MRN: Acct#: Visit Reason: Dysuria; UC - Dysuria; LOWER BACK PAIN, PAINFUL URINATION Arrival: 10/22/2024 19:10:05 Discharge: 10/22/2024 20:04:00 LOS: 000 00:54 Check In: 10/22/2024 19:10:05 Checkout: 10/22/2024 20:04:00 Address: [address] [place] [id number] PCP: MIGUEL DENNEY PROVIDER INFORMATION Provider Role Assigned Unassigned Erica Hopper LPN ED Nurse 10/22/2024 19:12:25 10/22/2024 19:14:24 Kranthi Allen ED PA 10/22/2024 19:14:43 Joan Mosqueda COMPUTER INSTALLATION ENGINEER Nurse 10/22/2024 19:23:46 VITALS INFORMATION Vital Sign Triage Latest Temperature Tympanic Temperature Temporal Artery Pulse Rate O2 Sat 98 % 98 % Respiratory Rate Blood Pressure /83 mmHg /83 mmHg MEDICAL INFORMATION Medications Given: Allergy Information: No Known Medication Allergies PHYSICIAN DOCUMENTATION DISCHARGE INFORMATION: Discharge Disposition: Home Discharge Location: Home PATIENT EDUCATION INFORMATION Instructions: Urinary Tract Infection, Adult Follow-Up: With: Address: When: [address] [place] [id number] [facility] (1) Within 7 to 10 days Comments: You have been diagnosed with a urinary tract infection. Begin Macrobid 100 mg 1 in the morning and one at night for the next 7 days with food. Begin Pyridium one every 8 hours over the next 2 days which will help soothe your bladder pain and cause bright orange urine discoloration. Increase your fluids to 60 oz/day by drinking non-caffeinated, nonalcoholic beverages. The gonorrhea and chlamydia tests performed take 3-5 days for results. We will call you with any positive results, but you will not receive a call with negative results. You are welcome to call here to confirm results. Recommended to abstain from intercourse until test results are back. You have not been tested for HIV, hepatitis, syphilis, or herpes. This requires send out blood workthat is not done in the urgent care. You may have this testing done at the health department or by your family physion. As always, practice safe sex. Seek additional medical care if fever, sharp pain on just one side of your low back, visible blood in the urine, nausea, vomiting, worse in any way. DIAGNOSIS: Acute cystitis with hematuria Patient Understands: Yes - Patient/family/caregiver verbalizes understanding of instructions given Comment:[facility] HospitalED Patient Summaryon 51-25-4032PX Patient Summary [facility] ? Urgent Care [address] [place], [place] [id number] PATIENT DISCHARGE INSTRUCTIONS Patient Information Name: GARY CLIFFORD Age: 18 Years Date of : 2005 [facility]: [id number] Reason For Visit: Dysuria; UC - Dysuria; LOWER BACK PAIN, PAINFUL URINATION Arrival Time: 10/22/2024 19:10:05 Primary Care Physician: MIGUEL DENNEY Attending Physician: Kranthi Allen Comment: Patient Education With: Address: When: [address] [place] [id number] [facility] (1) Within 7 to 10 days Comments: You have been diagnosed with a urinary tract infection. Begin Macrobid 100 mg 1 in the morning and one at night for the next 7 days with food. Begin Pyridium one every 8 hours over the next 2 days which will help soothe your bladder pain and cause bright orange urine discoloration. Increase your fluids to 60 oz/day by drinking non-caffeinated, nonalcoholic beverages. The gonorrhea and chlamydia tests performed take 3-5 days for results. We will call you with any positive results, but you will not receive a call with negative results. You are welcome to call here to confirm results. Recommended to abstain from intercourse until test results are back. You have not been tested for HIV, hepatitis, syphilis, or herpes. This requires send out blood workthat is not done in the urgent care. You may have this testing done at the health department or by your family physion. As always, practice safe sex. Seek additional medical care if fever, sharp pain on just one side of your low back, visible blood in the urine, nausea, vomiting, worse in any way. Urinary Tract Infection, Adult A urinary tract infection (UTI) is an infection of any part of the urinary tract. The urinary tractincludes the kidneys, ureters, bladder, and urethra. These organs make, store, and get rid of urinein the body. An upper UTI affects the ureters and kidneys. A lower UTI affects the bladder and urethra. What are the causes? Most urinary tract infections are caused by bacteria in your genital area around your urethra, where urine leaves your body. These bacteria grow and cause inflammation of your urinary tract. What increases the risk? You are more likely to develop this condition if: ? You have a urinary catheter that stays in place. ? You are not able to control when you urinate or have a bowel movement (incontinence). ? You are female and you: ? Use a spermicide or diaphragm for control. ? Have low estrogen levels. ? Are . ? You have certain genes that increase your risk. ? You are sexually active. ? You take antibiotic medicines. ? You have a condition that causes your flow of urine to slow down, such as: ? An enlarged prostate, if you are male. ? Blockage in your urethra. ? A kidney stone. ? A nerve condition that affects your bladder control (neurogenic bladder). ? Not getting enough to drink, or not urinating often. ? You have certain medical conditions, such as: ? Diabetes. ? A weak disease-fighting system (immunesystem). ? Sickle cell disease. ? Gout. ? Spinal cord injury. What are the signs or symptoms? Symptoms of this condition include: ? Needing to urinate right away (urgency). ? Frequent urination. This may include small amounts of urine each time you urinate. ? Pain or burning with urination. ? Blood in the urine. ? Urine that smells bad or unusual. ? Trouble urinating. ? Cloudy urine. ? Vaginal discharge, if you are female. ? Pain in the abdomen or the lower back. You may also have: ? Vomiting or a decreased appetite. ? Confusion. ? Irritability or tiredness. ? A fever or chills. ? Diarrhea. The first symptom in older adults may be confusion. In some cases, they may not have any symptoms until the infection has worsened. How is this diagnosed? This condition is diagnosed based on your medical history and a physical exam. You may also have other tests, including: ? Urine tests. ? Blood tests. ? Tests for STIs (sexually transmitted infections). If you have had more than one UTI, a cystoscopy or imaging studies may be done to determine the cause of the infections. How is this treated? Treatment for this condition includes: ? Antibiotic medicine. ? Cmez-bal-ahghrow medicines to treat discomfort. ? Drinking enough water to stay hydrated. If you have frequent infections or have other conditions such as a kidney stone, you may need to see a health care provider who specializes in the urinary tract (urologist). In rare cases, urinary tract infections can cause sepsis. Sepsis is a life- threatening condition that occurs when the body responds to an infection. Sepsis is treated in the hospital with IV antibiotics, fluids, and other medicines. Follow these instructions at home: Medicines (more content not included)...[facility] HospitalPregnancy Test Urine 10-22-2024 [facility] IslandComment on above:Performed By: #### [id number], [id number], [id number], [id number] #### [facility] (DEFAULT) [address] [place], [place] [address]C Preg Internal ControlPassLima Memorial HospitalComment on above:Performed By: #### [id number], [id number], [id number], [id number] #### [facility] (DEFAULT) [address] [place] [address] [id number] Mhmix9ir 95-70-6912IG Bacteria1+[facility] Comment on above:Order Comment: Urinalysis Microscopic order added on by Postify Expert Rules system.Performed By: #### [id number], [id number], [id number], [id number] #### [facility] (DEFAULT) [address] [place] [address] [id number] Mucous1+[facility] HospitalComment on above:Order Comment: Urinalysis Microscopic order added on by Post[employer] Expert Rules system. Performed By: #### [id number], [id number], [id number], [id number] #### [facility] (DEFAULT) [address] [place] [address] [id number] HospitalComment on above:Order Comment: Urinalysis Microscopic order added on by Postify Expert Rules system. Performed By: #### [id number], [id number], [id number], [id number] #### [facility] (DEFAULT) [address] [place] [address] [id number] Squam EpiFewLima Memorial HospitalComment on above: Order Comment: Urinalysis Microscopic order added on by Postify Expert Rules system.Performed By: #### [id number], [id number], [id number], [id number] #### [facility] (DEFAULT) [address] [place] [address] [id number] WBC>100NoKettering Health PrebleComment on above:Order Comment: Urinalysis Microscopic order added on by Postify Expert Rules system. Performed By: #### [id number], [id number], [id number], [id number] #### [facility] (DEFAULT) [address] [place] [address] [id number] w Culture if Ind Standardon 80-52-6421Vsbtlzmgcq UA NormalMagrselect medical specialty hospital - southeast [place] HospitalComment on above:Performed By: #### [id number], [id number], [id number], [id number] #### [facility] (DEFAULT) [address] [place] [address] 45203Fzfau (U)YellowNormalSamaritan Hospital HospitalComment on above: Performed By: #### [id number], [id number], [id number], [id number] #### [facility] (DEFAULT) [address] [place] [address] [id number]?IndicatedInvalid Interpretation CodeSamaritan Hospital HospitalComment on above:Result Comment: Result created by rule GL_MAGR_ADD_UA_CULT Result created by rule GL_MAGR_ADD_UA_CULT1Performed By: #### [id number], [id number], [id number], [id number] #### [facility] (DEFAULT) [address] [place] [address] 52477Fyjltin (U) [Mass/Vol]NegativeNormalSamaritan Hospital Hospital Comment on above:Performed By: #### [id number], [id number], [id number], [id number] #### [facility] (DEFAULT) [address] [place] [address] 31549Apljnqf Ql (U)NegativeNormalSamaritan Hospital HospitalComment on above:Performed By: #### [id number], [id number], [id number], [id number] #### [facility] (DEFAULT) [address] [place] [address] 81495Nzesp?IndicatedInvalid Interpretation CodeSamaritan Hospital HospitalComment on above:Result Comment: Result created by rule GL_MAGR_ADD_UA_MICROPerformed By: #### [id number], [id number], [id number], [id number] #### [facility] (DEFAULT) [address] [place] [address] [id number] BilirubinNegativeNormMercy Health Perrysburg Hospital HospitalComment on above:Performed By: #### [id number], [id number], [id number], [id number] #### [facility] (DEFAULT) [address] [place] [address] [id number] BloodLARGEAbnormalNEGATIVESamaritan Hospital HospitalComment on above:Performed By: #### [id number], [id number], [id number], [id number] #### [facility] (DEFAULT) [address] [place] [address] [id number] ClarityCLOUDYAbnormalCLEARSamaritan Hospital HospitalComment on above:Performed By: #### [id number], [id number], [id number], [id number] #### [facility] (DEFAULT) [address] [place] [address] [id number] Leuk EstLARGEAbnormalNEGATIVESamaritan Hospital HospitalComment on above:Performed By: #### [id number], [id number], [id number], [id number] #### [facility] (DEFAULT) [address] [place] [address] [id number] NitriteNegativeNormalNEGATIVESamaritan Hospital HospitalComment on above:Performed By: #### [id number], [id number], [id number], [id number] #### [facility] (DEFAULT) [address] [place] [address] [id number] pH7.6Gjkydh7-2Kdbomhfl HospitalComment on above: Performed By: #### [id number], [id number], [id number], [id number] #### [facility] (DEFAULT) [address] [place] [address] [id number] Pucuioz11GlpynnawUGSVDSQHQpghbghd HospitalComment on above:Performed By: #### [id number], [id number], [id number], [id number] #### [facility] (DEFAULT) [address] [place] [address] [id number] Spec Grav1.904Bosxjd4.001-1.035[facility] HospitalComment on above:Performed By: #### [id number], [id number], [id number], [id number] #### [facility] (DEFAULT) [address] [place] [address] [place] [id number] Urobilinogen0.2 mg/dLNocarteret health care0.2-1.0[facility] Comment on above:Performed By: #### [id number], [id number], [id number], [id number] #### [facility] (DEFAULT) [address] [place] [address] 77590Vznrp SourceClean CatchNoKettering Health PrebleComment on above:Performed By: #### [id number], [id number], [id number], [id number] #### [facility] (DEFAULT) [address] [place] [address] 33740Rnzchz Care Note- Provideron 29-09-9418Erenbo Care Note- ProviderPatient: GARY CLIFFORD Age: 18 years Sex: FEMALE : 2005 Associated Diagnoses: Acute cystitis with hematuria Author: Kranthi Allen Basic Information Time seen: Date & time 10/22/2024 19:27:00. History source: Patient. Arrival mode: Walking. History limitation: None. Additional information: Chief Complaint from Nursing Triage Note : Chief Complaint 10/22/2024 19:20 EST Chief Complaint dysuria for one month. also some low back pain and says she would also like to be checked for std . Gary is a 18-year-old patient who presents to urgent care stating September 21 at the end of her last menstrual cycle that she began to have burning with urination. She states that she has had mild constant burning for over 4 weeks. She is currently on her menstrual cycle using tampons and pads. She reports that last week she started to have some vague bilateral low back pain occasionally worse on the right, occasionally on the left. She has not had any gross hematuria, history of renal stones,history of urologist. Patient reports her last urinary tract infection was over 1 year ago. She is sexually active with her first partner, male, who is present today as of August 2024. She has no his tory of STDs. She is concerned that her boyfriend may be with another person and would like std testing. She denies any vaginal discharge, lesions, rash Review of Systems Constitutional symptoms: No fever, no chills. Respiratory symptoms: No shortness of breath, no orthopnea. Cardiovascular symptoms: No chest pain, Gastrointestinal symptoms: No nausea, no vomiting, no diarrhea, no constipation. Genitourinary symptoms: Dysuria, vaginal bleeding, currently menstruating, no hematuria, no vaginaldischarge. Musculoskeletal symptoms: No back pain, Neurologic symptoms: No headache, no dizziness. Psychiatric symptoms: No anxiety, no depression. Health Status Allergies: Allergic Reactions (Selected) No Known Medication Allergies. Past Medical/ Family/ Social History Medical history: No active or resolved past medical history items have been selected or recorded.. Surgical history: No active procedure history items have been selected or recorded.. Family history: No family history items have been selected or recorded.. Social history: Social & Psychosocial Habits Alcohol 10/22/2024 Type: denies Substance Use 10/22/2024 Substance use: Never Tobacco 10/22/2024 Smoking tobacco use: Never tobacco user Electronic Cigarette/Vaping 10/22/2024 Electronic Cigarette Use: Never . Problem list: No qualifying data available . Physical Examination Vital Signs Vital Signs 10/22/2024 19:20 EST Temperature Temporal 37 DegC Peripheral Pulse Rate 90 bpm Respiratory Rate 16 br/min Systolic Blood Pressure 129 mmHg HI Diastolic Blood Pressure 83 mmHg HI SpO2 98 % Oxygen Therapy Room air BP Method Automatic . Measurements 10/22/2024 19:20 EST Height 168.91 cm Weight 57.15 kg Weight Dosing 57.150 kg Body Mass Index Measured 20.03 kg/m2 BSA Measured 1.64 m2 Body Mass Index Percentile 28.06 Height/Length Percentile 80.58 Weight Percentile 45.59 . General: Alert, no acute distress, Not ill-appearing, Skin: Warm, dry, no rash, normal turgor. Head: Normocephalic, atraumatic. Neck: Supple, trachea midline, full range of motion. Eye: Pupils are equal, round and reactive to light, extraocular movements are intact. Ears, nose, mouth and throat: Mouth: moist, Throat: Normal. Cardiovascular: Regular rate and rhythm, No murmur. Respiratory: Lungs are clear to auscultation, respirations are non-labored, breath sounds are equal. Gastrointestinal: Soft, Nontender. Musculoskeletal: Normal ROM, normal strength. Neurological: Alert and oriented to person, place, time, and situation, No focal neurological deficit observed, CN II-XII intact. Psychiatric: Cooperative, appropriate mood & affect. Medical Decision Making Differential Diagnosis: Urinary tract infection, cystitis not pyelonephritis, not urinary incontinence, not stress incontinence, not . Rationale: 18 y/o patient presents with 4 weeks of urinary urgency, burning, frequency. She is currently menstruating. Urinalysis today shows large leukocytes, greater than 100 white blood cells, 20-30 red blood cells and culture is indicated. She has large amount of blood but is currently on her me nstrual cycle. Urine is negative for glucose. There is 30 of protein present. Her test was negative. Gonorrhea chlamydia was also collected, sent out and results will be available in the next 3 to 5 days. Advised patient avoid sexual activity until STD workup. Urinary tract infection patient was started on Macrobid 100 mg twice daily for 7 days. Also started on Pyridium 100 mg every 8 hours for the next 2 days. Discussed with patient she needs to follow-up with her primary care physician if her UTI symptoms have not completely (more content not included)...[facility] ? Urgent Care [address] [place] [address] PATIENT DISCHARGE INSTRUCTIONS Patient Information Name: GARY CLIFFORD Age: 18 Years Date of : 2005 Reason For Visit: Dysuria; UC - Dysuria; LOWER BACK PAIN, PAINFUL URINATION Arrival Time: 10/22/2024 19:10:05 Primary Care Physician: MIGUEL DENNEY Attending Physician: Kranthi Allen Comment: Visit Diagnosis: Diagnoses This Visit Acute cystitis with hematuria (N30.01) Dysuria ([id number]) UC - Dysuria ([id number]) If you received any narcotics, sedation, or any other medication that causes drowsiness for the next 24 hours, unless otherwise directed: ? Do not drive a car. ? Do not operate machinery such as power tools, lawn mowers, drills, sewing machines, or stoves ? Avoid alcoholic beverages and drugs for allergies, nerves, or sleep ? Do not make important personal or business decisions or sign any legal documents With: Address: When: MIGUEL DENNEY [address] [place] [address] Business (1) Within 7 to 10 days Comments: You have been diagnosed with a urinary tract infection. Begin Macrobid 100 mg 1 in the morning and one at night for the next 7 days with food. Begin Pyridium one every 8 hours over the next 2 days which will help soothe your bladder pain and cause bright orange urine discoloration. Increase your fluids to 60 oz/day by drinking non-caffeinated, nonalcoholic beverages. The gonorrhea and chlamydia tests performed take 3-5 days for results. We will call you with any positive results, but you will not receive a call with negative results. You are welcome to call here to confirm results. Recommended to abstain from intercourse until test results are back. You have not been tested for HIV, hepatitis, syphilis, or herpes. This requires send out blood workthat is not done in the urgent care. You may have this testing done at the health department or by your family physion. As always, practice safe sex. Seek additional medical care if fever, sharp pain on just one side of your low back, visible blood in the urine, nausea, vomiting, worse in any way. Medication Information: The exam and treatment you received today in the [facility] were for an urgent problem and are not intended as complete care. It is important for you to follow up with a doctor, nurse practitioner, or physician?s chiropractor assistant for ongoing care. If your symptoms become worse or you do not improve as expected and you are unable to reach your usual health care provider, you should return to the Emergency Department, we are available 24 hours a day. For those patients who have received Radiology results, the interpretation of your X-ray as given to you by our Urgent Care physician is only a preliminary report. The Radiologist will review your films and if there is a change in the diagnosis you will be notified by phone. Please make sure you have provided a working phone number so we can reach you if necessary. In the event that you had a lab culture while you were a patient in the Urgent Care, you will be notified by phone if there is a need to change your antibiotic. Please make sure you have provided a working phone number so we can reach you if necessary. [facility] has provided you with a complete list of medications post discharge. Please inform your home health care case manager/provider of your visit and for further instruction on these medications. Any specific questions regarding your chronic medications and dosages should be discussed with your primary care physician(s) and/or pharmacist. New Medications [facility] [id number], [address], [place] [id number], [phone] nitrofurantoin (Macrobid 100 mg oral capsule) 1 cap(s) Oral (given by mouth) 2 times per day for 7 Days. Refills: 0. phenazopyridine (Pyridium 200 mg oral tablet) 1 tab(s) Oral (given by mouth) 3 times per day for 2 Days. Refills: 0. Visit Information Allergies: Substance Reaction Symptoms Type Comments No Known Medication Allergies Drug Vital Signs: Vitals and Measurements this Visit (last charted value for your 10/22/2024 visit) Vital Signs This Visit Temperature Temporal: 37 DegC Peripheral Pulse Rate: 90 bpm Respiratory Rate: 16 br/min Systolic Blood Pressure: 129 mmHg Diastolic Blood Pressure: 83 mmHg SpO2: 98 % Oxygen Therapy: Room air Blood Pressure Method: Automatic Measurements This Visit Height/Length Measured: 168.91 cm Weight Measured: 57.15 kg Weight Dosin.150 kg Body Mass Index: 20.03 kg/m2 BSA Measured: 1.64 m2 Body Mass Index Percentile: 28.06 Height/Length Percentile: 80.58 Weight Percentile: 45.59 Problems List: Problem Onset Comments No Problems found Patient Education Urinary Tract Infection, Adult A (more content not included)...[facility] 12 leadon 09-24-2024 TRACEMASTERVUEWestern Reserve HospitalCardiac echo study Procedureon 06-54-8105Fx asc z-score1.48 [facility] HospitalAOAZ1.86ProCleveland Clinic Children'S Hospital For RehabilitationAOAZ -0.1PKettering Memorial HospitalAortic Sinus Valsalva2.4 [facility] AOSVZ-0.62ProCleveland Clinic Children'S Hospital For RehabilitationAscending aorta2.65 [facility] HospitalAV annulus1.88 cm1.57 - 2.18 [facility] HospitalFS40 %28 - 44 %[facility] HospitalIVSd0.76 cm0.54 - 1.07 [facility] HospitalIVSs1.43 cm0.80 - 1.45 [facility] HospitalLVIDd4.42 cm3.95 - 5.48 [facility] LVIDs2.64 cm2.34 - 3.55 [facility] HospitalLVPWd0.9 cm0.51 - 0.95 cm [facility] HospitalLVPWs1.58 cm1.01 - 1.66 [facility] Sinotubular Junction1.98 cm1.62 - 2.[address] [facility] Medical CenterTJZ-0.45 [facility] HospitalZAVA0.15ProSumma Health Akron Campus SystemZIVSD0.02Western Reserve HospitalZIVSS1.56ProCleveland Clinic Children'S Hospital For RehabilitationZLVIDD-0.51ProCleveland Clinic Children'S Hospital For RehabilitationZLVIDS -0.69ProCleveland Clinic Children'S Hospital For RehabilitationZLVPWD1.32PKettering Memorial HospitalZLVPWS1.31PKettering Memorial HospitalZSJ-0.11[facility] SystemStructurally normal heart Ascending aorta just below the upper limit of normal (26.5 mm verses 26.74 mm Normal biventricular systolic function Trivial mitral valve insufficiency Left Ventricle Left ventricle size is normal. Normal left ventricular wall thickness. Normal left ventricular systolic function. Right Ventricle Right ventricle size is normal. Normal right ventricular wall thickness. Normal right ventricular systolic function. Left Atrium Left atrium size is normal. Right Atrium Right atrium size is normal. IVC/SVC Inferior vena cava drains into the right atrium. Right superior vena cava drains into the right atrium. Mitral Valve Normal mitral valve. Trivial mitral valve insufficiency. No mitral valve stenosis. Tricuspid Valve Normal tricuspid valve. Trivial tricuspid valve insufficiency. No tricuspid valve stenosis. Aortic Valve Normal trileaflet aortic valve. No aortic valve insufficiency. No valvular aortic stenosis. Pulmonic Valve Normal pulmonary valve. Trivial pulmonary valve insufficiency. No pulmonary valve stenosis. Ascending Aorta The aortic root is normal size and the ascending aorta is normal size. Sinus of Valsalva is 2.40cm.STJ is 1.98cm. Ascending aorta is 2.65cm. Aortic annulus is 1.88cm. Aortic root z-score is -0.62. Aortic STJ z-score is -0.45. Ascending aorta z-score is 1.86. Aortic annulus z-score is -0.10. Left aortic arch. No evidence coarctation of the aorta. Pericardium No pericardial effusion. No pleural effusion. Congenital Pulmonary Structures All pulmonary veins were visualized draining to the left atrium. Congenital Coronary Vessels Right coronary artery arises normally from the right coronary cusp. Left main coronary artery arises normally from the left coronary cusp. Pulmonary Artery Right pulmonary artery is normal in size. Left pulmonary artery is normal in size. Main pulmonary artery is normal in size. No right pulmonary artery stenosis. No left pulmonary artery stenosis. Atrial Septum Atrial septum intact. Ventricular Septum Intact ventricular septum. Patent Ductus Arteriosus No evidence of a patent ductus arteriosus. Segmental Anatomy Atrial situs solitus. Abdominal situs solitus. D-looped ventricles present. Normally positioned great arteries. Levocardia. Study Details Study quality was good. A complete 2D, color flow Doppler and spectral Doppler echocardiogram was performed.PHOENIXVILLE HOSPITALEmbedStoreCleveland Clinic Medina HospitalPyrolia Up Health SystemRadiology Study observation (narrative)[facility] HospitaliKaaz SystemHeterophile Ab IA.rapid Ql (S/P/Bld)on [id number] TESTNegativeJ.W. Ruby Memorial Hospital Comment on above:Performed By: #### [id number] #### [facility] ([id number]) [address] [place], [place] [address]Nv Panel InformationOrdered By: Brandi Gray on 81-84-2582Iobiz Strep (POC)Medina HospitalXR CHEST 2 VWSon 29-82-3865FD CHEST 2 VWSXR CHEST 2 VWS History: Dyspnea. Exam/Technique: PA and lateral chest Comparison: None Findings: There is no evidence of active pulmonary or pleural disease. Cardiac and mediastinal contours are within normal limits. IMPRESSION: No evidence of active pulmonary disease demonstrated. Finalized by Hiam Welch MD on 01/20/2024 5:03 PMNormalSelect Medical Specialty Hospital - Cincinnati NorthXR Chest PA and Lateralon 01-20-2024 History: Dyspnea. Exam/Technique: PA and lateral chest Comparison: None Findings: There is no evidence of active pulmonary or pleural disease. Cardiac and mediastinal contours are within normal limits. IMPRESSION: No evidence of active pulmonary disease demonstrated. Finalized by Haim Welch MD on 01/20/2024 5:03 PMSHaim Alonso MD - 01/20/2024 History: Dyspnea. Exam/Technique: PA and lateral chest Comparison: None Findings: There is no evidence of active pulmonary or pleural disease. Cardiac and mediastinal contours are within normal limits. IMPRESSION: No evidence of active pulmonary disease demonstrated. Finalized by Haim Welch MD on 01/20/2024 5:03 PM DynaOpticsRadiology Study observation (narrative)Dyna[employer]XR Chest PA and LateralOrdered By: Haim Welch on 32-48-8889[facility] Work Phone: XR FOOT RT MIN 3 VIEWSon [id number] FOOT RT MIN 3 VIEWSPatient: GARY CLIFFORD Exam Date: 04/24/2019 : 2005 Gender:F Ordering : EREN JASON Admission #: [id number] Family : DR JOSEFA SANCHEZ . Order #: [id number] CLICK HERE TO VIEW EXAM RADIOLOGY REPORT PROCEDURE: RADIOGRAPH FOOT RIGHT MIN 3 VIEWS COMPARISON: None. INDICATIONS: Acute right anterior foot pain after injury FINDINGS: BONES: No fracture, acute abnormality, or significant arthropathy. SOFT TISSUES: No visible soft tissue swelling or radiopaque foreign body. OTHER: Negative. CONCLUSION: Normal examination for a patient of this age. Dictated by: Stanislav Kwon M.D. on 04/24/2019 at 12:30 Approved by: Stanislav Kwon M.D. on 04/24/2019 at 12:35[facility] Vital Signs Date TimeVital SignValuePerforming UnfswivlbNapvgaog26-00-2731 14:19040Body .91 cmMiguel Denney MD Work Phone: [facility]09-25-2025 14:19-0400 Body mass index (BMI) [Ratio]21.7 kg/m2Migeul Denney MD Work Phone: 1(568)[address]09-25-2025 14:19-0400 Body wjsfdqeohxi63.9 [degF]Miguel Denney MD Work Phone: 1(964)[address] [place], [place] 1913809-25-2025 14:19-0400 Body xzjnza42.91 kgMiguel Denney MD Work Phone: 1(427)[address] [place], [place] 1913809-25-2025 14:19-0400 Diastolic blood yhtivzzj59 mm[Hg]Miguel Denney MD Work Phone: 1(216)[address] [place], [place] 1913809-25-2025 14:19-0400 Heart rate83 /Jhony Denney MD Work Phone: 1(653)[address] [place], [place] 1913809-25-2025 14:19-0400 Respiratory rate17 /Jhony Denney MD Work Phone: 1(964)[address] [place], [place] 1913809-25-2025 14:19-0400 SaO2% (BldA) [Mass fraction]97 %Miguel Denney MD Work Phone: 1(171)[address] [place], [place] 1913809-25-2025 14:19-0400 Systolic blood lhtwotfg487 mm[Hg]Miguel Denney MD Work Phone: 1(112)[address]08-29-2025 08:23-0400 Body etzbwh290.6 cmJogagandeep Denney MD Work Phone: 1(077)[address]08-29-2025 08:23-0400Body mass index (BMI) [Ratio]21.63 kg/m2Miguel Denney MD Work Phone: 1(211)[address]08-29-2025 08:23-0400Body yjmpemagumk46.01 [degF]Miguel Denney MD Work Phone: 1(011)[address]08-29-2025 08:23-0400Body .78 kgMiguel Denney MD Work Phone: 1(674)083-[address] [place], [place] 6876808-29-2025 08:23-0400Diastolic blood tfyfxiwv70 mm[Hg]Miguel Denney MD Work Phone: 1(513)[address]21 [address]08-29-2025 08:23-0400Heart rate 93 /minMiguel Denney MD Work Phone: 1(136)[address] [place], [place] 0796108-29-2025 08:23-3419TfJ9% (BldA) [Mass fraction]95 %Miguel Denney MD Work Phone: 1(331)71221 [address]08-29-2025 08:23-0400Systolic blood hkyzdiap684 mm[Hg]Miguel Denney MD Work Phone: 1(019)645[address]07-24-2025 13:50-0400Body ftiant770.6 cmMiguel Denney MD Work Phone: 1(613)[address]07-24-2025 13:50-0400Body mass index (BMI) [Ratio]21.76 kg/m2Miguel Denney MD Work Phone: 1(175)[address]07-24-2025 13:50-0400Body yaltillxddz59.4 [degF]Miguel Denney MD Work Phone: 1(211)[address]07-24-2025 13:50-0400Body ceeook85.15 kgMiguel Denney MD Work Phone: 1(466)[address]07-24-2025 13:50-0400Diastolic blood grsxpjuu74 mm[Hg]Miguel Denney MD Work Phone: 1(495)[address]07-24-2025 13:50-0400Heart rate 83 /minMiguel Denney MD Work Phone: 1(911)[address]07-24-2025 13:50-0400Systolic blood dqqmmhfy527 mm[Hg]Miguel Denney MD Work Phone: 1(689)614[address]05-07-2025 11:10-0400Body uaahgh439.6 cmMiguel Denney MD Work Phone: 1(975)[address]05-07-2025 11:10-0400Body mass index (BMI) [Ratio]21.47 kg/m2Miguel Denney MD Work Phone: 1(681)[address]05-07-2025 11:10-0400Body fzawgnkvcud50.1 [degF]Miguel Denney MD Work Phone: 1(921)[address]05-07-2025 11:10-0400Body onzeol03.33 kgMiguel Denney MD Work Phone: 1(161)706[address]05-07-2025 11:10-0400Diastolic blood rfwalkzp60 mm[Hg]Miguel Denney MD Work Phone: 1(687)42521 [address]05-07-2025 11:10-0400Heart rate 121 /minMiguel Denney MD Work Phone: 1(157)[address]05-07-2025 11:10-6174WxS0% (BldA) [Mass fraction]94 %Miguel Denney MD Work Phone: 1(448)[address]05-07-2025 11:10-0400Systolic blood yexegdrf828 mm[Hg]Miguel Denney MD Work Phone: 1(074)[address]10-24-2024 10:21-0400Diastolic blood mm[Hg]Arnaldo Hyman MD Work Phone: 1(018)693-[facility]10-24-2024 10:210400Heart rate 90 /minClflorinda Hyman MD Work Phone: 1(639)156-[facility]10-24-2024 10:21-0400Systolic blood xetqnhhi752 mm[Hg]Arnaldo Hyman MD Work Phone: 1(494)763-[facility]10-24-2024 10:07-0400Body nbnzox972.2 Flex Hyman MD Work Phone: [phone])373-[facility]10-24-2024 10:07-0400Body mass index (BMI) [Ratio]20.09 kg/p4RppluvqkArnaldo Hyman MD Work Phone: [facility]10-24-2024 10:07-0400Body byrskg15.52 kgClflorinda Hyman MD Work Phone: [facility]10-24-2024 10:07-6788WkA4% (BldA) [Mass fraction]100 %Arnadlo Hyman MD Work Phone: [facility]09-27-2024 11:19-0400Body ghavrn202.2 cmMiguel Denney MD Work Phone: 1(206)931-[address] [place], [place] 5067309-27-2024 11:19-0400Body mass index (BMI) [Ratio]19.42 kg/m2Miguel Denney MD Work Phone: 1(168)710-[address] [place], [place] 6876809-27-2024 11:19-0400Body bnskunnnncz01.9 [degF]Miguel Denney MD Work Phone: 1(913)588-[address] [place], [place] 6876809-27-2024 11:19-0400Body .25 kgMiguel Denney MD Work Phone: 1(928)622-[address] [place], [place] 6876809-15-2024 10:54-0400Body zuhfzctargw04.2 [degF][facility]09-15-2024 10:54-0400 Diastolic blood idaeaeqk66 mm[Hg][facility]09-15-2024 10:54-0400Heart vfin902 /minMedina Hospital09-15-2024 10:54-6169AgD3% (BldA) [Mass fraction]98 %[facility] 08-13-2024 10:54-0400Systolic blood eeirdvbl04 mm[Hg][facility]09-15-2024 10:44-0400Body iurbbi015.18 cmMedina Hospital 08-13-2024 10:44-0400Body mass index (BMI) [Percentile] Per age and sex25.2 % [facility]09-15-2024 10:44-0400Body mass index (BMI) [Ratio]19.8 kg/q3NdjlajgvzMedina Hospital09-15-2024 10:44-0400Body .6 kgMedina Hospital02-22-2024 15:26-0500Body height 168.9 cmMiguel Denney MD Work Phone: 1(690)463-[address] [place], [place] [address]Tauntr02-22-2024 15:26-0500Body mass index (BMI) [Ratio]21.46 kg/m2Miguel Denney MD Work Phone: 1(658)524-[address] [place] [address] [employer] Ozvqkc36-84-0224 15:26-0500Body ilfyrehapto97.01 [degF]Miguel Denney MD Work Phone: 1(738)283-[address] [place] [address] [employer] Moowqu57-88-6506 15:26-0500Body .24 kgMiguel Denney MD Work Phone: 1(111)384-[address] [place] [address] [employer] Rvrfbv80-29-0848 15:3018NoW4% (BldA) [Mass fraction]99 %Miguel Denney MD Work Phone: 1(235)[phone] [place] [address] Encounters Encounter DateEncounter TypeCare ProviderFacilityStart: 10-08-2025 End: 16-76-6870Ubesrvqpy encounterMiguel Denney MD Work Phone: [facility] Start: 08-23-2025 End: 25-70-5538Dtbreuni ReferredIvis Abernathy APRN-Lab [facility] Work Phone: Start: 08-23-2025 End: 44-60-8676hzcwnvvbebWwqbAndre Denney MD Work Phone: [facility] Work Phone: Start: 08-23-2025 End: 59-63-4079Sinfwob encounter procedureIvis Abernathy APRN-[facility] Work Phone: Start: 07-27-2025 End: 56-28-8445Xywkoo outpatient visit 15 minutesMiguel Denney MD Work Phone: [facility] Comment on above:Anxiety (Primary Dx)Start: 07-27-2025 End: 27-84-3599effchzkxkxEITI J HIESTANDSt. Mary's Medical Center Ambulatory PPGStart: 06-21-2025 End: 67-63-1640Xmzjug outpatient visit 15 Shen Denney MD Work Phone: [facility] Comment on above:Recurrent UTI (Primary Dx)Start: 06-21-2025 End: 97-33-9928vpowqyhryyDVNG J [facility] Ambulatory PPGStart: 04-16-2025 End: 01-43-3933fkraljiwtqKxpxyk M OrtleyFacility:[facility] Hospitaltart: 04-04-2025 End: 19-54-7803Ozrwzs outpatient visit 15 Shen Deneny MD Work Phone: [facility] Comment on above:Acute non-recurrent sinusitis, unspecified location (Primary Dx); Seasonal allergic rhinitis due to pollenStart: 04-04-2025 End: 00-94-5821kjwlnbesifLXSJSt. Francis Hospital PPGStart: 11-20-2024 End: 13-44-4934Xuuruxgnr department patient visitMIGUEL Fernandez [facility]tart: 10-22-2024 End: 01-37-2090ddkludmmkdEHKX J HIGALL[facility] MEDICAL CENTERCONCHITAUnm Children'S [facility] HospitalStart: 09-21-2024 End: 94-68-0215Ddfnam outpatient visit 40 minutesClflorinda Hyman MD Work Phone: [facility] Phys[facility] Pediatric CardiologyComment on above:Dysautonomia (CMS-HCC) (Primary Dx); Congenital abnormality of ascending aortaStart: 09-21-2024 End: 47-75-1433pbfourrcyfTYURJDOUTami HYMANWood County Hospital HospitalStart: 08-25-2024 End: 93-74-1113Ranbpy outpatient visit 15 Shen Denney MD Work Phone: [facility] Comment on above:Tonsillitis (Primary Dx)Start: 08-25-2024 End: 63-28-7832xjngufwmprYBPO J [facility] HospitalStart: 08-13-2024 End: 39-60-9143lqudjqyudmRzfuzjvarProMedica [facility] Work Phone: Start: 08-13-2024 End: 57-33-5983Hovsbpx encounter procedureM[facility] Anneliese Work Phone: Start: 01-20-2024 End: 30-71-1651hsidhywwmoKJBQ J HIESTANDMiami Valley Hospitaltart: 01-20-2024 End: 47-19-7718Lmdmuu outpatient visit 15 minutesMiguel Denney MD Work Phone: [facility] Comment on above:Viral upper respiratory tract infection (Primary Dx); Shortness of breathStart: 06-19-2023 End: 95-75-0051ismwuqrkkhAL-C Calley Lewis Work Phone: [facility] Work Phone: Start: 06-19-2023 End: 95-21-4786Nkmtgvx encounter Jadyn Greer Work Phone: [facility] [address] Start: 04-24-2019 End: 83-42-1427Mruiawa encounter Alphonso SANCHEZFacility:U7Ghyxz: 09-09-2018 End: 13-84-9016Prpgpiy encounterTabitha NarvaezFacility:AshSurgCareStart: 06-07-2018 End: 78-95-0466Rnivxuh encounterTabitha NarvaezFacility:[facility] Procedures DateProcedureProcedure DetailPerforming ClinicianStart: 24-98-7337Vwfanmq microbial cultureMiguel Denney MD Work Phone: start: 42-92-0760Zacupylza microbial cultureMiguel Denney MD Work Phone: start: 86-93-1015Zpsd stain microscopyMiguel Denney MD Work Phone: start: 17-17-2839Gcldx depression screening assessment Miguel Denney MD Work Phone: start: 37-92-0250Rftgr depression screening assessment Miguel Denney MD Work Phone: start: 00-86-2657Jlpkh Strep (POC)Start: 87-20-4018G- ray of right kneePA-C Homero Greer Work Phone: Start: 51-61-0467Qkpog depression screening assessment Miguel Denney MD Work Phone: Plan of Treatment DateCare ActivityDetailAuthorStart: 43-28-8682BIjH,Tdap and Td Vaccines (7 - Td or Tdap)DTaP,Tdap and Td Vaccines (7 - Td or Tdap)[facility] SystemStart: 58-90-7865Lnvdl BMI ScreeningAdult BMI ScreeningProCleveland Clinic Medina Hospitalca Health SystemStart: 28-32-4831Bllsujqxbr ScreeningDepression ScreeningHarrison Community Hospitalca Health SystemStart: 82-42-4440Mlcrjee ScreeningTobacco ScreeningHarrison Community Hospitalca Health SystemStart: 18-00-5423Axclw BMI ScreeningAdult BMI ScreeningProCleveland Clinic Medina Hospitalca Health SystemStart: 21-42-5392Gijyy BMI ScreeningAdult BMI ScreeningProMedica Health SystemStart: 85-04-0277Xcrgwtk ScreeningTobacco ScreeningProMedica Health SystemStart: 28-44-9871Krwax BMI ScreeningAdult BMI ScreeningProMedica Health SystemStart: 75-83-2944Vbbyisk ScreeningTobacco ScreeningHarrison Community Hospitalca Health SystemStart: 35-43-0210Vtlop BMI ScreeningAdult BMI ScreeningProMedica Health SystemStart: 33-52-5357Rtjntic ScreeningTobacco ScreeningProMedica Health SystemStart: 29-85-5477Ifvvx BMI ScreeningAdult BMI ScreeningMount Ascutney HospitalMedica Health SystemStart: 87-03-4974Wujezmq ScreeningTobacco ScreeningHarrison Community Hospitalca [facility] SystemStart: 86-71-3119KwqphblbuMercy Hospitaltart: 85-82-2926Agwffrc Culture Aerobic CultureMercy Hospitaltart: 02-23-2021Ylslhvwih CultureAnaerobic CultureMercy Hospitaltart: 82-70-8926LMQOT- 19 Vaccine ( season)COVID-19 Vaccine ( season)[facility] SystemStart: 27-44-9310Hftzhhgqf vaccinationInfluenza VaccineHenry County Hospital SystemStart: 55-62-9444Lpsqx BMI ScreeningAdult BMI ScreeningHenry County Hospital SystemStart: 86-33-2385Pmoaawb ScreeningTobacco ScreeningProSumma Health [facility] SystemStart: 09-25-2024 End: 60-97-7004Ploevmu encounter grwqzibki85/28/2024 8:30 AM EDT Office Visit [facility] [address] [place] [address] Arnaldo Hyman MD [address] [place], [place] [facility] Physicians Pediatric CardiologyStart: 09-21-2024 End: 04-29-5463Tvocenw encounter tqfiopfcb74/24/2024 10:00 AM EDT Office Visit [facility] [address] [place] [address] Arnaldo Hyman MD [address] [place] [address] [facility] Phys[facility] Pediatric CardiologyStart: 69-83-9477ZVHKJ-19 Vaccine ( season)COVID- 19 Vaccine ()[facility] SystemStart: 78-88-6876QHSOK-19 Vaccine ( season)COVID-19 Vaccine ( season)[facility] SystemStart: 09-17-6092Tzdsjylgf vaccinationInfluenza VaccineHenry County Hospital SystemStart: 19-31-0559FFSFR-19 Vaccine ( season)COVID-19 Vaccine ( season)[facility] SystemStart: 20-94-6913Kyaczzsah vaccinationInfluenza VaccineProMercy Health Perrysburg Hospitaltart: 34-61-9410Ldqbkvrxlw ScreeningDepression ScreeningCarolinaEast Medical Centertart: 76-35-4898Dzudhothwm ScreeningDepression ScreeningWestern Reserve HospitalBacteria identified in Unspecified specimen by Aerobe cultureMedina HospitalBacteria identified in Unspecified specimen by Anaerobe cultureMedina HospitalHeterophile Ab [Presence] in Serum, Plasma or Blood by Rapid immunoassay Mononucleosis test Lab Routine Tonsillitis 08/25/2024 11:[facility] End: 43-95-4992Khwxkvlyndfyx screenMononucleosis screen Lab Routine Tonsillitis 1 Occurrences starting 08/25/2024 until 08/25/2025[facility] Work Phone: comment on above:1 Occurrences starting 08/25/2024 until 08/25/2025 Immunizations Immunization DateImmunizationNotesCare JnhxfwouHfrudsmw93-36-7524hwfsezkejiwnr oligosaccharide (groups A, C, Y and W-135) diphtheria toxoid conjugate vaccine (MCV4O)Miguel Denney MD Work Phone: [phone] [place], [place] [address]Fnjofa83-70-7392uhtkqgpfmwyvd oligosaccharide (groups A, C, Y and W-135) diphtheria toxoid conjugate vaccine (MCV4O)Miguel Denney MD Work Phone: [phone] [place], [place] [address]306-29-2017tetanus toxoid, reduced diphtheria toxoid, and acellular pertussis vaccine, adsorbedMiguel Denney MD Work Phone: [phone] [place], [place] [address]Mmnjiu40-61-8493dtzceqtaz virus vaccine, unspecified formulationMiguel Denney MD Work Phone: [phone] [place], [place] [address]Spcklw35-91-7358llcbojcjq A vaccine, adult dosageMiguel Denney MD Work Phone: [phone] [place], [place] [address]Xwwrkg08-80-5238pjrowfpwa A vaccine, adult dosageMiguel Denney MD Work Phone: [phone] [place], [place] [address]Pufnel31-30-9872ovmuaxpgui, tetanus toxoids and acellular pertussis vaccineMiguel Denney MD Work Phone: [phone] [place], [place] 5067305-18-2010measles, mumps and rubella virus Oz Denney MD Work Phone: [phone] [place], [place] 6876805-18-2010poliovirus vaccine, inactivatedMiguel Denney MD Work Phone: [phone] [place], [place] 6876805-18-2010varicella virus Oz Denney MD Work Phone: [phone] [place], [place] 6876804-11-2006diphtheria, tetanus toxoids and acellular pertussis vaccineMiguel Denney MD Work Phone: [phone] [place], [place] [address]Oyprie05-63-7161ucawrnastiff conjugate vaccine, 7 valentMiguel Denney MD Work Phone: [phone] [place], [place] 6876804-11-2006varicella virus Oz Denney MD Work Phone: [phone] [place], [place] 6876801-04-2006haemophilus influenzae type b vaccine, conjugate unspecified formulationMiguel Denney MD Work Phone: [phone] [place], [place] 6876801-04-2006measles, mumps and rubella virus vaccineMiguel Denney MD Work Phone: [phone] [place], [place] 6876808-18-2005diphtheria, tetanus toxoids and acellular pertussis Oz Denney MD Work Phone: [phone] [place], [place] 6876808-18-2005haemophilus influenzae type b vaccine, conjugate unspecified formulationMiguel Denney MD Work Phone: [phone] [place], [place] 6876808-18-2005hepatitis B vaccine, adult dosageMiguel Denney MD Work Phone: [phone] [place], [place] [address]Xbrydx09-42-2945hucfeqstyvcz conjugate vaccine, 7 valentMiguel Denney MD Work Phone: [phone] [address]08-18-2005poliovirus vaccine, inactivatedMiguel Denney MD Work Phone: [phone] [address]06-16-2005diphtheria, tetanus toxoids and acellular pertussis vaccineMiguel Denney MD Work Phone: [phone] [place], [place] 6876806-16-2005haemophilus influenzae type b vaccine, conjugate unspecified formulationMiguel Denney MD Work Phone: [phone] [place], [place] 6876806-16-2005hepatitis B vaccine, adult dosageMiguel Denney MD Work Phone: [phone] [place], [place] [address]Nbxlgw88-71-7447aovmpxyjcmyj conjugate vaccine, 7 valentMiguel Denney MD Work Phone: [phone] [place], [place] 6876806-16-2005poliovirus vaccine, inactivatedMiguel Denney MD Work Phone: [phone] [place], [place] 6876803-28-2005diphtheria, tetanus toxoids and acellular pertussis vaccineMiguel Denney MD Work Phone: [phone] [place], [place] 6876803-28-2005haemophilus influenzae type b vaccine, conjugate unspecified formulationMiguel Denney MD Work Phone: [phone] [place], [place] 6876803-28-2005hepatitis B vaccine, adult dosageMiguel Denney MD Work Phone: [phone] [place], [place] [address]Dcnhqa22-92-2060zeoyqaezkihv conjugate vaccine, 7 valentMiguel Denney MD Work Phone: [phone] [place], [place] 6876803-28-2005poliovirus vaccine, inactivatedMiguel Denney MD Work Phone: [phone] [place], [place] 6876812-12-2004hepatitis B vaccine, adult dosageMiguel Denney MD Work Phone: [phone] [place] [address] Payers DatePayer CategoryPayerPolicy [id number] Care Other (unspecified) [place] [id number]jlo Managed Care - [employer] 1.2.840.178109.1.13.424.2.7.9.608045.402.37432-40-5737Ilpjbaj85-46-6710Lipnems [id number] 2..1.892584.3.57[id number] 2.1.920122.3.57[id number] 2.1.854223.3.57[id number] 2.1.121335.3.57[id number] 2..1.502419.3.57[id number] 2..1.351029.3.57[id number] 2.16.840.1.507925.3.57[id number] 2..840.1.616549.3.57[id number] 2..840.1.068733.3.57[id number] 2.840.1.338837.3.57[id number] 2.0.1.536784.3.579.2.[id number] 2.840.1.788409.3.579.2.18119-02-6348Ygvtlyl9525643 2.0.1.689061.3.57[id number] 2.840.1.384343.3.57[id number] 2.840.1.87082[id number] 2.840.1.516123.3.579.2.531 Social History DateTypeDetailFacilityTobacco smoking status NHISUnknown if ever smokedCommunity Regional Medical Center Work Phone: Start: 01-34-4227Sdo Assigned At BirthFeGalion Hospitaltart: 06-29-2023 End: 17-17-3979Eguombx smoking status NHISNever smoked tobacco (finding) [facility]: 11-38-8595Zuvbuws use and exposure Smokeless tobacco non-userHenry County Hospital SystemStart: 08-25-2024 End: 13-72-7119Nxwrircok beverage intakeDeferHenry County Hospital SystemStart: 12-24-2020 End: 50-35-9639Avcdman of Social functionLakeHealth [facility]Point [facility] Center [facility] Centertart: 12-24-2020 End: 79-74-1833Tdvpxdv Use Disorder Identification Test - Consumption [AUDIT-C] [facility] SystemHow often to you have a drink containing alcohol?Never [facility] Up Health SystemAverage Number of DrinksNot on [facility]tart: 16-65-4948Adr assigned at birthNot on [facility] Start: 73-93-6668NugLjkrgf (finding)[facility] Centertart: 04-04-2025 End: 42-15-9470Wpipoorqa beverage intakeLifetime non-drinker (finding)[facility] SystemNEGATED: Highlighted rowStart: NINFHistory of tobacco usePassive smokerWestern Reserve Hospital Clinical Notes 01-20-2024 to 10-08-2025 Note Date & TlwcXylnIcrzrhlj22-02-3626 Miscellaneous Notes* Telephone Encounter - Alla Gonzalez - 10/08/2025 1:00 PM EST Gary came in and asked if her Lexapro could be increased, she doesn't feel like it is strong enough. Please advise * Telephone Encounter - Miguel Denney MD - 10/08/2025 1:00 PM EST Script for 20 mg tablets (1 daily) sent to pharmacy. * Telephone Encounter - Alla Gonzalez - 10/08/2025 1:00 PM EST Attempted to call patient it sounded like the phone would lemon picker and then it would be air. This happened 2 times. Will attempt to call in the morning documented in this encounterWestern Reserve Hospital11-10-2025 Telephone encounter Note* Telephone Encounter - Alla Gonzalez - 10/08/2025 1:00 PM EST Gary came in and asked if her Lexapro could be increased, she doesn't feel like it is strong enough. Please advise [employer]11-10-2025 Telephone encounter Note* Telephone Encounter - Miguel Denney MD - 10/08/2025 1:00 PM EST Script for 20 mg tablets (1 daily) sent to pharmacy. [employer]11-10-2025 Telephone encounter Note* Telephone Encounter - Alla Gonzalez - 10/08/2025 1:00 PM EST Attempted to call patient it sounded like the phone would lemon picker and then it would be air. This happened 2 times. Will attempt to call in the morning [employer]09-25-2025 Evaluation note* Diagnosis Onset Date Resolution Status Admit Date Cellulitis of left external ear acuteSeptember 2024 2:12pm [facility] Work Phone: [phone] 288-607508-29-2025 History of Present illness Narrative* Miguel Denney MD - 07/27/2025 8:30 AM EDT Subjective Patient ID: Gary Clifford is a 19 y.o. female. Comes in for discussion of anxiety. She has been a bit of a nervous person but the uncontrolled anxiety started around the beginning of the year. She has episodes that she describes as near panic. She has been getting some counseling which has not really helped much so far. She denies major depressive symptoms although she isn't sleeping very well. Sometimes she is emotional. Denies alcohol or drugs. She isn't . She is not in any kind of trouble. The following portions of the patient's history were reviewed and updated as appropriate: allergies, current medications, past medical history, past social history, past surgical history, and problemlist. Review of Systems Objective Physical Exam Constitutional: Comments: She appears well and interacts appropriately. No other physical exam done today. Assessment/Plan Medication use reviewed with her. Reasonable expectations and potential side effects discussed. Further pending her response. I recommend that she continue in her therapy. Diagnoses and all orders for this visit: Anxiety - escitalopram (LEXAPRO) 10 mg tablet; Take 1 tablet (10 mg total) by mouth in the morning. documented in this encounterWestern Reserve Hospital07-24-2025 History of Present illness Narrative* Miguel Denney MD - 06/21/2025 2:00 PM EDT Subjective Patient ID: Gary Clifford is a 19 y.o. female. Last fall she had a UTI. She had not had a UTI since she was a benji in high school. Since the onein the fall she has had several more episodes. She has not had associated systemic symptoms or kidney infection. In between the episodes her urinary function is normal. She admits that she holds her urine sometimes because she does not want to use a public restroom. No constipation. Her urinary stream is normal. No vaginal symptoms. Denies being . She does have intercourse sometimes. No clear connection of intercourse with these UTIs. She is currently on Macrobid for this episode and her symptoms have resolved. The following portions of the patient's history were reviewed and updated as appropriate: allergies, current medications, past medical history, past social history, past surgical history, and problemlist. Review of Systems Objective Physical Exam Constitutional: Appearance: Normal appearance. Comments: Afebrile. She does not appear ill. Abdominal: General: There is no distension. Palpations: There is no mass. Tenderness: There is no abdominal tenderness. There is no right CVA tenderness or left CVA tenderness. Assessment/Plan Reviewed with her. She should try to avoid holding her urine and she should void after intercourse if possible. She will keep a supply of Keflex on hand and it can be used at the onset of UTI symptoms if they recur following the course of Macrobid. If bladder infections occur frequently she could consider a dose of antibiotic post intercourse for prevention. Further pending her course. Diagnoses and all orders for this visit: Recurrent UTI - CEPHalexin (KEFLEX) 500 mg capsule; Take 1 capsule (500 mg total) by mouth 3 (three) times a day for 5 days. documented in this encounterWestern Reserve Hospital05-07-2025 History of Present illness Narrative* Miguel Denney MD - 04/04/2025 11:15 AM EDT Subjective Patient ID: Gary Clifford is a 19 y.o. female. She started a few days ago with head congestion and sinus pressure. Some sore throat and cough. Shefeels it a little bit in her upper chest now. She has allergies this time of the year and has been taking her allergy medication. No high fever. Her mother is also sick. No history of asthma. She does not smoke. The following portions of the patient's history were reviewed and updated as appropriate: allergies, current medications, past medical history, past social history, and problem list. Review of Systems Objective Physical Exam Constitutional: Comments: Afebrile and not toxic HENT: Right Ear: There is impacted cerumen. Left Ear: Tympanic membrane normal. Nose: Congestion and rhinorrhea present. Mouth/Throat: Pharynx: Posterior oropharyngeal erythema present. No oropharyngeal exudate. Cardiovascular: Rate and Rhythm: Normal rate and regular rhythm. Pulmonary: Effort: Pulmonary effort is normal. Breath sounds: Normal breath sounds. Lymphadenopathy: Cervical: No cervical adenopathy. Neurological: Mental Status: She is alert. Assessment/Plan If her symptoms are not resolved with treatment or something more develops she will let me know. Diagnoses and all orders for this visit: Acute non-recurrent sinusitis, unspecified location - azithromycin (ZITHROMAX) 250 mg tablet; Take 2 tablets the first day, then 1 tablet daily for 4 days. Seasonal allergic rhinitis due to pollen - predniSONE (DELTASONE) 20 mg tablet; Take 2 tablets (40 mg total) by mouth in the morning for 5 days. documented in this encounterWestern Reserve Hospital11-24-2024 NotePatient Education Materials Follows:and Gynecology Urinary Tract Infection, Adult A urinary tract infection (UTI) is an infection of any part of the urinary tract. The urinary tractincludes the kidneys, ureters, bladder, and urethra. These organs make, store, and get rid of urinein the body. An upper UTI affects the ureters and kidneys. A lower UTI affects the bladder and urethra. What are the causes? Most urinary tract infections are caused by bacteria in your genital area around your urethra, where urine leaves your body. These bacteria grow and cause inflammation of your urinary tract. What increases the risk? You are more likely to develop this condition if: ? You have a urinary catheter that stays in place. ? You are not able to control when you urinate or have a bowel movement (incontinence). ? You are female and you: ? Use a spermicide or diaphragm for control. ? Have low estrogen levels. ? Are . ? You have certain genes that increase your risk. ? You are sexually active. ? You take antibiotic medicines. ? You have a condition that causes your flow of urine to slow down, such as: ? An enlarged prostate, if you are male. ? Blockage in your urethra. ? A kidney stone. ? A nerve condition that affects your bladder control (neurogenic bladder). ? Not getting enough to drink, or not urinating often. ? You have certain medical conditions, such as: ? Diabetes. ? A weak disease-fighting system (immunesystem). ? Sickle cell disease. ? Gout. ? Spinal cord injury. What are the signs or symptoms? Symptoms of this condition include: ? Needing to urinate right away (urgency). ? Frequent urination. This may include small amounts of urine each time you urinate. ? Pain or burning with urination. ? Blood in the urine. ? Urine that smells bad or unusual. ? Trouble urinating. ? Cloudy urine. ? Vaginal discharge, if you are female. ? Pain in the abdomen or the lower back. You may also have: ? Vomiting or a decreased appetite. ? Confusion. ? Irritability or tiredness. ? A fever or chills. ? Diarrhea. The first symptom in older adults may be confusion. In some cases, they may not have any symptoms until the infection has worsened. How is this diagnosed? This condition is diagnosed based on your medical history and a physical exam. You may also have other tests, including: ? Urine tests. ? Blood tests. ? Tests for STIs (sexually transmitted infections). If you have had more than one UTI, a cystoscopy or imaging studies may be done to determine the cause of the infections. How is this treated? Treatment for this condition includes: ? Antibiotic medicine. ? Lisn-sqb-wqyhbjr medicines to treat discomfort. ? Drinking enough water to stay hydrated. If you have frequent infections or have other conditions such as a kidney stone, you may need to see a health care provider who specializes in the urinary tract (urologist). In rare cases, urinary tract infections can cause sepsis. Sepsis is a life- threatening condition that occurs when the body responds to an infection. Sepsis is treated in the hospital with IV antibiotics, fluids, and other medicines. Follow these instructions at home: Medicines ? Take kvcq-dup-tdqdagp and prescription medicines only as told by your health care provider. ? If you were prescribed an antibiotic medicine, take it as told by your health care provider. Do not stop using the antibiotic even if you start to feel better. General instructions ? Make sure you: ? Empty your bladder often and completely. Do not hold urine for long periods of time. ? Empty your bladder after sex. ? Wipe from front to back after urinating or having a bowel movement if you are female. Use each tissue only one time when you wipe. ? Drink enough fluid to keep your urine pale yellow. ? Keep all follow-up visits. This is important. Contact a health care provider if: ? Your symptoms do not get better after 1?2 days. ? Your symptoms go away and then return. Get help right away if: ? You have severe pain in your back or your lower abdomen. ? You have a fever or chills. ? You have nausea or vomiting. Summary ? A urinary tract infection (UTI) is an infection of any part of the urinary tract, which includes the kidneys, ureters, bladder, and urethra. ? Most urinary tract infections are caused by bacteria in your genital area. ? Treatment for this condition often includes antibiotic medicines. ? If you were prescribed an antibiotic medicine, take it as told by your health care provider. Do not stop using the antibiotic even if you start to feel better. ? Keep all follow-up visits. This is important. This information is not intended to replace advice given to you by your health care provider. Make sure you discuss any questions you have with your health care provider. Document Revised: (more content not included)...[id number] History of Present illness Narrative* Arnaldo Hyman MD - 09/21/2024 10:00 AM EDT [address] [place] [address], [address] [place] [address] September 21, 2024 Patient: Gary Clifford Date of : 2005 Date of Visit: 09/21/[address] Miguel Denney MD: I had the pleasure of seeing Gary Clifford, at our pediatric cardiology clinic on 09/21/2024 .As you know, Gary is a 18 y.o. female followed by Cardiology for Dysautonomia . Gary is accompanied by her self. Since Gary's last visit here she states that she has been doing well with having increasing her salt and fluid intake. She denies having any cardiac symptoms: No no cyanosis, no palpitations, syncope, or near syncope. No shortness of breath, no wheezing. No seizures. No headaches. She states that she does every now and then have transient dizziness with change in position which lasts for few seconds and only when she changes position too fast. The dizziness will resolve if she stands for about a minute. She does occasionally have chest pain which she describes as a burning which resolves with deep breathing and sitting. It is not initiated by physical activity. It is not associated with any other cardiac symptoms. She has aggressively increase her salt and fluid intake incorporated liquid IV as well as propel and Gatorade into her hydration regime n. 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 Review of Systems Constitution: Negative for diaphoresis, fever, weight gain. Positive for unintentional 15 lb weightloss in 3 weeks. Head: Negative for vision changes. Positive for headaches ENT: Negative for congestion or nosebleeds. Cardiovascular: Negative for , palpitations, irregular heart beats or cyanosis. No recent illnesses. Strep 1 month ago. Positive for left chest pain, describes as heartburn. Deep breathing and sitting help. Respiratory: Negative for dyspnea, coughing or increased work of breathing. Positive for shortness of breath. Musculoskeletal: Negative for joint pain or swelling. Gastrointestinal: Negative for diarrhea, nausea or vomiting. Renal: Negative for excessive urination or painful urination. Neurological: Negative for syncope, seizures, numbness, or tingling. Positive for weekly dizziness and light-headedness, with position changes, lasts a minute. Psychiatric/Behavioral: Negative for anxiety or depression. Positive for stress, Current Outpatient Medications Medication Sig Dispense Refill ascorbic acid (VITAMIN C ORAL) Take by mouth. One tablet daily levocetirizine (XYZAL) 5 mg tablet Take 1 tablet (5 mg total) by mouth every evening. No current facility-administered medications for this visit. No Known Allergies Past Medical History: Diagnosis Date COVID-2019 Past Surgical History: Procedure Laterality Date NO PAST SURGERIES Family History Problem Relation Age of Onset Other Sister NCS Thyroid Issues Maternal Grandmother Heart defect Neg Hx Seizures Neg Hx Diabetes Neg Hx Hypertension Neg Hx Arrhythmia Neg Hx Asthma Neg Hx Heart attack Neg Hx Sudden Neg Hx Stroke Neg Hx Clotting disorder Neg Hx High Cholesterol Neg Hx There is no family history of congenital heart disease, SIDS, sudden cardiac , or congenital anomalies or arrhythmias or hypercoaguble state ,no congenital deafness.No family history of anyone with sudden, unexplained, and unexpected before the age of 50.Parent denies anyone in the family who has been diagnosed with a sudden -predisposing heart condition such as HCM, LQTS, Brugadasyndrome. Social History: Social History Socioeconomic History Marital status: Single Spouse name: Not on file Number of children: Not on file Years of education: Not on file Highest education level: Not on file Occupational History Not on file Tobacco Use Smoking status: Never Passive exposure: Never Smokeless tobacco: Never Vaping Use Vaping status: Never Used Substance and Sexual Activity Alcohol use: Defer Drug use: Defer Sexual activity: Defer Other Topics Concern Not on file Social History Narrative Not on file Social Drivers of Health Financial Resource Strain: Not on file Food Insecurity: No Food Insecurity (09/21/2024) Hunger Screening Food Insecurity - Worry: Never True Food Insecurity - Inability: Never True Transportation Needs: Not on file Physical Activity: Not on file Stress: Not on file Social Connections: Not on file Interpersonal Safety: Not on file Housing Instability: Not on file Living Conditions Lives with Parents/siblings Secondhand Smoke Exposure? 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 Yes Vitals: 09/21/24 1007 09/21/24 1016 09/21/24 1021 BP: 128/81 126/83 BP Site: Right Arm Right Arm BP Postition: Sitting Standing Pulse: 92 90 SpO2: 100% Weight: 57.5 kg (126 lb 12.8 oz) Height: 169.2 cm (5' 6.61 ) On examination I found a well appearing female in no respiratory distress.she was alert and oriented. Mucous membranes were pink and moist.she was anicteric and acyanotic Lungs were clear to auscultation. Neck exam demonstrated no JVD.Chest was normal active without thrill. There was a regular rate and rhythm with a normal S1 and S2 with physiologic splitting of the S2. No murmurs were heard in systole or diastole. Abdominal exam was normal with no hepatosplenomegaly. Peripheral extremities demonstrated symmetrical pulses and pulse pressure without BF delay. No clubbing, cyanosis, or edema was seen with normal capillary refill. Skin & joint exam appear grossly normal. Studies reviewed by me mentioned below: EKG demonstrated normal sinus rhythm with an average heart rate of 72 beats per minute with normal cardiac intervals. No evidence of Brugada type [address] No ST-T changes suggestive ischemia. Echocardiogram demonstrated: Echo complete W/O contrast (Pediatric) Structurally normal heart Ascending aorta just below the upper limit of normal (26.5 mm verses 26.74 mm Normal biventricular systolic function Trivial mitral valve insufficiency My impression is that Gary is a 18 y.o. female with dysautonomia who is clinically doing well on conservative management. 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 I do not feel compelled to start her on pharmaceutical medications since she is clinically doing well having increase her salt and fluid intake. With respect to her echocardiographic findings with her ascending aorta just below the upper limit of normal I recommend re-evaluation in 2 years. I discussed all the above in great detail with Gary. All questions and concerns were addressed. Time spent with Gary was 40 minutes, 50% or more was face to face interaction coordinating care and discussing pathophysiology and management.This time included time spent preparing for the visit, obtaining and reviewing any outside history/data, taking a history, performing an exam/evaluation, counseling and educating the patient/family about the diagnosis and plan, performing medical decisionmaking, referring to and communicating with other health care referrals, independently interpretingresults and documenting in the EMR, and coordinating care Thank you so much for allowing me to participate in Gary's care .Please feel free to contact me if you have any queries or concerns. Sincerely, Arnaldo Hyman M.D. [employer] Humanities Teacher [facility] This note is dictated with the use of M*Modal.Please note that this dictation was completed with computer voice recognition software. Quite often unanticipated grammatical, syntax, homophones, and other interpretive errors are inadvertently transcribed by the computer software. Please disregard these errors. Please excuse any errors that have escaped final proofreading. Echo central sterile tech Milagro Hernandez was present during examination documented in this encounterWestern [facility]09-[facility] History of Present illness Narrative* Miguel Denney MD - 08/25/2024 11:30 AM EDT Subjective Patient ID: Gary Clifford is a 18 y.o. female. Comes in with sore throat and low-grade fever. Two weeks ago she had similar symptoms and tested positive for COVID and strep at the urgent care. She was treated with a course of amoxicillin. She felt significantly better within a couple of days. After completing the antibiotic she started again with a feeling of difficulty breathing and sore throat. She has had a little bit of nausea and small volume vomiting. No trouble breathing. No diarrhea. The following portions of the patient's history were reviewed and updated as appropriate: allergies, current medications, past medical history, past social history, past surgical history, and problemlist. Review of Systems Objective Physical Exam Constitutional: Comments: Afebrile and not toxic but she does not feel well. Her color looks fine. HENT: Right Ear: Tympanic membrane normal. Left Ear: Tympanic membrane normal. Mouth/Throat: Comments: Tonsils are erythematous and enlarged. Neck: Comments: Tonsils are palpable in the anterior neck and tender. No definite lymphadenopathy. Cardiovascular: Rate and Rhythm: Normal rate. Heart sounds: No murmur heard. Pulmonary: Effort: Pulmonary effort is normal. Breath sounds: Normal breath sounds. Abdominal: Comments: No splenomegaly Skin: Findings: No rash. Neurological: Mental Status: She is alert. Assessment/Plan Further pending her mono testing and clinical course. She will be off work this weekend. Diagnoses and all orders for this visit: Tonsillitis - Mononucleosis screen; Future - cefaDROXil (DURICEF) 500 mg/5 mL suspension; Take 10 mL (1,000 mg total) by mouth in the morning for 10 days. documented in this encounterWestern [facility] Hospital02-22-2024 History of Present illness Narrative* Miguel Denney MD - 01/20/2024 3:30 PM EST Subjective Patient ID: Gary Clifford is a 18 y.o. female. She started with upper respiratory congestion earlier this week. No fever, minor cough. She now notes a feeling of dyspnea at rest that is a little worse with exertion and lying down. She does feel drainage in her throat. Her SOB feels to her like she has run a marathon. No wheezing and no history of asthma. No chest pain, no swelling. The following portions of the patient's history were reviewed and updated as appropriate: allergies, current medications, past medical history, past social history, and problem list. Review of Systems Objective Physical Exam Constitutional: Comments: She does not appear acutely in distress and her SaO2 in room air is 99%. HENT: Right Ear: Tympanic membrane normal. Left Ear: Tympanic membrane normal. Nose: Congestion present. Mouth/Throat: Pharynx: Posterior oropharyngeal erythema present. No oropharyngeal exudate. Cardiovascular: Rate and Rhythm: Normal rate and regular rhythm. Heart sounds: No murmur heard. No gallop. Pulmonary: Effort: Pulmonary effort is normal. Breath sounds: Normal breath sounds. No wheezing. Comments: Mild resting tachypnea. Musculoskeletal: Right lower leg: No edema. Left lower leg: No edema. Lymphadenopathy: Cervical: No cervical adenopathy. Neurological: Mental Status: She is alert. Assessment/Plan Reviewed with her and her mother. I think her symptoms are URI related and she has no physical findings of concern. The dyspnea sensation may be due to her congestion but it is unusual. Will check a chest x-ray and monitor her closely. Symptomatic URI treatment. Further pending her course. Diagnoses and all orders for this visit: Viral upper respiratory tract infection Shortness of breath - X-ray chest 2 views; Future documented in this encounterHenry [facility] SystemEvaluation noteNo assessment information availableCommunity [facility] Medical Center Work Phone: Evaluation note* Diagnosis Dysautonomia (CMS-HCC)- Primary Unspecified disorder of autonomic nervous system Congenital abnormality of ascending aorta Dysautonomia (CMS-HCC) Unspecified disorder of autonomic nervous system Dysautonomia (CMS-HCC) Unspecified disorder of autonomic nervous system documented [facility]* Diagnosis Viral upper respiratory tract infection- Primary Acute upper respiratory infections of unspecified site Shortness of breath Shortness of breath documented [facility] this [facility]* Diagnosis Tonsillitis- Primary Acute tonsillitis documented [facility]* Diagnosis Acute non-recurrent sinusitis, unspecified location- Primary Seasonal allergic rhinitis due to pollen [facility]* Diagnosis Recurrent UTI- Primary Urinary tract infection, site not specified documented [facility]* Diagnosis Anxiety- Primary Anxiety state, unspecified [facility]* Diagnosis Anxiety Anxiety state, unspecified documented in this encounter [facility] SystemInstructionsNot on filedocumented in this encounter [facility] SystemInstructionsNot on filedocumented in this encounter [facility] SystemInstructionsNot on filedocumented in this encounter [facility] SystemReason for referral (narrative)No reason for referral information availableWestern Reserve Hospital Work Phone: Summary Purpose Family History No Family History Records FoundNo Family History Records FoundNo Family History Records FoundNo Family History Records FoundNo Family History Records FoundNo Family History Records FoundNo Family History Records Found Advance Directives Advance Directive Response Recorded Date/ Time Advance Directives No December 11:19am Advance Directive Response Recorded Date/ Time Advance Directives No November 03, 2024 3:41pm Chief Complaint and Reason for Visit Chief Complaint poss Strep Throat Chief Complaint Admit Date Left ear poss infection from new pierrubin g August 23, 2025 2:12pm Reason for Visit Admit Date Cellulitis of left external ear Septembe r 2024 2:12pm Additional Source Comments INFORMATION SOURCE (unrecogn ized section and content) DATE CREATED AUTHOR 10/13/2018 [facility] DATE CREATED AUTHOR AUTHOR'S ORGANIZ ATION 07/10/2019 [facility] DATE CREATED AUTHOR AUTHOR'S ORGANIZ ATION 09/22/2024 [facility] DATE CREATED AUTHOR AUTHOR'S ORGANIZ ATION 10/31/2024 [facility] DATE CREATED AUTHOR AUTHOR'S ORGANIZ ATION 11/21/2024 [facility] DATE CREATED AUTHOR AUTHOR'S ORGANIZ ATION 07/29/2025 [facility] DATE CREATED AUTHOR AUTHOR'S ORGANIZ ATION 08/31/2025 [facility] Care Teams (unrecognized sec tion and content) Team Status: Inactive Member Role Status Dates Homero Greer PA-C Attending Provider Active Team Status: Active Member Role Status Dates Miguel Denney MD Primary Care Provider Active Team Status: Inactive Member Role Status Dates Miguel Denney MD Primary Care Provider Active Start: August 13, 2024 End: August 13Fe Tam ProviderActiveStart: August 13, 2024 End: August 13, 2024Team MemberRelationshipSpecialtyStart DateEnd Date Miguel Denney MD [address] [place] [address], [address] [place], [place] [id number] PCP - [id number]/26/18Team MemberRelationshipSpecialtyStart DateEnd Date Miguel Denney MD [address] [place] [address], [address] [place] [address] PCP - [id number] MemberRelationshipSpecialtyStart DateEnd Date Miguel Denney MD [address] [place] [address], [address] [place] [address] PCP - [id number] MemberRelationshipSpecialtyStart DateEnd Date Miguel Denney MD [address] [place] [address], [address] [place] [address] PCP - [id number] MemberRelationshipSpecialtyStart DateEnd Date Miguel Denney MD [address] [place] [address], [address] [place] [address] PCP - [id number]/26/18 Team Status: Inactive Member Role Status Dates Ivis Nunn APRN Attending Provider Active Start: August 23, 2025 End: August 23, 2025[facility] ProviderActiveStart: August 23, 2025 End: August 23, 2025 Team Status: Inactive Member Role Status Dates Miguel Denney MD Primary Care Provider Active Start: August 23, 2025 End: August 23, 2025Fe [place] ProviderActiveStart: August 23, 2025 End: August 23, 2025Team MemberRelationshipSpecialtyStart DateEnd Date Miguel Denney MD [address] [place] [address], [address] [place] [address] PCP - [id number] Goals (unrecognized section and content) Goals may be documented in a n alternate sectionGoals may be documented in an alternate sectionNot on filedocumented as of this encounterNot on filedocumented as of this encounterNot on filedocumented as of this encounterNot on filedocumented as of this encounterNot on filedocumented as of this encounterNot on filedocumented as of this encounterGoals may be documented in an alternate sectionGoals may be documented in an alternate sectionNot on filedocumented as of this encounter Reason for Visit (unrecogniz ed section and content) ReasonCommentsDysautonomiaReasonCommentsNasal CongestionShortness of breath, sore throat.CoughReasonCommentshad COVID and strep 2 weeks agoWent to in [place], was given Amoxicillin, took all the antibiotic and now sore throat is back againNauseavomitingReasonCommentsSinus ProblemStarted WednesdayReasonComments Chronic UTI'sReasonCommentsAnxiety FOR RECORDS PERTAINING TO PATIENTS WHO ARE OR HAVE BEEN ENROLLED IN A CHEMICAL DEPENDENCY/SUBSTANCEABUSE PROGRAM, SOME INFORMATION MAY BE OMITTED. This clinical summary was aggregated from multiple sources. Caution should be exercised in using it in the provision of clinical care. This summary normalizes information from multiple sources, and as a consequence, information in this document may materially change the coding, format and clinical context of patient data. In addition, data may be omitted in some cases. CLINICAL DECISIONS SHOULD BE BASED ON THE PRIMARY CLINICAL RECORDS. [employer] provides no warranty or guarantee of the accuracy or completeness of information in this document.
[2025-10-23 15:05] VITALS: BP 90/53; PULSE 83; TEMP 37; O2SAT 100
== END 2025-10-23 15:08 | disposition home or self-care (01) ==
PROVIDERS: Emergency Provider Emergency Medicine; PCP Internal Medicine
DX: O99.891 Other specified diseases and conditions complicating pregnancy (principal); M54.50 Low back pain, unspecified; R31.29 Other microscopic hematuria; Z3A.01 Less than 8 weeks gestation of pregnancy
CPT/HCPCS: 36415; 76775; 80048; 81001; 84702; 85025; 87086; 96361; 96374; 99285; J2405

== ENCOUNTER 2025-11-15 19:42 | Emergency (ER) | payer OTHER, SELFPAY ==
--- OUTSIDE RECORDS SUMMARY | 2025-11-02 09:00 | XMS_ITS | Encounter Summary ---
Author Organization [facility] Address [address] [place] [address] Care Team Providers Care Nuclear Equipment Design Engineer Name Role Phone Unavailable Primary Care Provider Unavailabl e Encounter Details DateTypeDepartmentCare Team (Latest Contact Info)Pofymanokir69/05/2025 9:00 AM ESTAncillary Procedure [facility] [address] [place] [address] Missed menses; Positive urine test ([facility]) Social History Tobacco UseTypesPacks/DayYears UsedDateSmoking Tobacco: Never Assessed Estimated Date of WuanccrlPqbmjhkqQqf58/27/2026Based on Ultrasound, [id number] and Gender InformationValueDate RecordedSex Assigned at BirthNot on fileLegal VxfDpwxlr49/15/2023 11:46 PM EDTGender IdentityNot on fileSexual OrientationNot on filedocumented as of this encounter Plan of Treatment DateTypeDepartmentCare Team (Latest Contact Info)Ggdvxgczlcp18/06/2026 9:50 AM ESTRoutine [facility] [address] [place] [address] Sathya Huffman DO [address] [place], [place] [id number] documented as of this encounter Procedures Procedure NamePriorityDate/TimeAssociated DiagnosisCommentsUS OB TRANSVAGINAL Elpvmyb42/03/2025 9:23 AM EST Missed menses Positive urine test ([facility]) documented in this encounter Results * US OB transvaginal (11/02/2025 9:23 AM EST)Anatomical RegionLateralityModality BodyUltrasoundSpecimen (Source)Anatomical Location / LateralityCollection Method / VolumeCollection TimeReceived Time11/15/2025 10:43 AM EST Impressions 11/15/2025 10:54 AM EST SINGLE LIVE INTRAUTERINE CORRESPONDING TO APPROXIMATELY 6 WEEKS 4 DAYS. NO GROSS ABNORMALITIES IDENTIFIED, WITHIN THE LIMITS OF THE STUDY. A cyst that contains debris is seen in maternal right ovary. ELECTRONICALLY SIGNED BY: DO Lety De La Cruz 11/15/2025 10:54 AM EST ultrasoundUS OB TRANSVAGINAL: 11/02/2025 8:58 AM CLINICAL HISTORY: Dating COMPARISON: No prior Transvaginal ultrasound of the gravid uterus was performed. FINDINGS: A gestational sac, yolk sac and pole are visualized. There is cardiac activity at 124 bpm. The gestational age based on this ultrasound is 6 weeks 4 days +/-0 weeks 4 days. The expected due date is June 24, 2026. The right ovary measures 4.8 x 3.6 x 4.6 cm for volume of 42.3 cc. It contains a cyst with internalechoes that measures 4.2 x 3.6 x 3.1 cm. The left ovary measures 4.6 x 1.9 x 3.5 cm for a volume of 9.8 cc. The cervical length measures 4.6 cm and appears to be closed. Procedure Note Freddy Lagunas DO - 11/15/2025 ultrasoundUS OB TRANSVAGINAL: 11/02/2025 8:58 AM CLINICAL HISTORY: Dating COMPARISON: No prior Transvaginal ultrasound of the gravid uterus was performed. FINDINGS: A gestational sac, yolk sac and pole are visualized. There iscardiac activity at 124 bpm. The gestational age based on this ultrasoundis 6 weeks 4 days +/-0 weeks 4 days. The expected due date is May. The right ovary measures 4.8 x 3.6 x 4.6 cm for volume of 42.3 cc. Itcontains a cyst with internal echoes that measures 4.2 x 3.6 x 3.1 cm. The left ovary measures 4.6 x 1.9 x 3.5 cm for a volume of 9.8 cc. The cervical length measures 4.6 cm and appears to be closed. IMPRESSION: SINGLE LIVE INTRAUTERINE CORRESPONDING TO APPROXIMATELY 6 WEEKS4 DAYS. NO GROSS ABNORMALITIES IDENTIFIED, WITHIN THE LIMITS OF THE STUDY. A cystthat contains debris is seen in maternal right ovary. ELECTRONICALLY SIGNED BY: Freddy Lagunas DO Authorizing ProviderResult TypeResult StatusCorey Armida DOIMG OB US PROCEDURES Final Result documented in this encounter Visit Diagnoses Diagnosis Missed menses Positive urine test [facility]) documented in this encounter
--- OUTSIDE RECORDS SUMMARY | 2025-11-02 09:30 | XMS_ITS | Encounter Summary ---
Author Organization [facility] Address [address] [place] [address] Care Team Providers Care Sourcing Coordinator Name Role Phone Unavailable Primary Care Provider Unavailabl e Reason for Visit * ReasonCommentsAmenorrhea Encounter Details DateTypeDepartmentCare Team (Latest Contact Info)Bdvgfnuwhth96/05/2025 9:30 AM ESTInitial [facility] [address] [place] [address] [place] [id number] GA: 6w4d Social History Tobacco UseTypesPacks/DayYears UsedDateSmoking Tobacco: Never Assessed Estimated Date of GuddrwrgPjejbuphFvo20/27/2026ased on Ultrasound, FHR-124Sex and Gender InformationValueDate RecordedSex Assigned at BirthNot on fileLegal SdkEctznp96/15/2023 11:46 PM EDTGender IdentityNot on fileSexual OrientationNot on filedocumented as of this encounter Last Filed Vital Signs Vital SignReadingTime TakenCommentsBlood Dssahclx802/7011/02/2025 10:06 AM EST Pulse--Temperature--Respiratory Rate--Oxygen Saturation--Inhaled Oxygen Concentration--Zdwsyf23.7 kg (131 lb 9.6 oz)11/02/2025 10:06 AM FWDTqhrrq169.9 cm (5' 6.5 )11/02/2025 10:07 AM ESTBody Mass Index20.9211/02/2025 10:06 AM EST documented in this encounter Progress Notes * Fanny Gaspar LPN - 11/02/2025 9:30 AM EST Reason for Appointment: Patient ID: Wilfrido Rosas is a 19 y.o. female who presents for Amenorrhea Patient presents today for a Nurse OB Intake appointment. Patient is 6w4d with a Estimated Date of Delivery: 06/24/26 OB History Para Term AB Living 1 SAB IAB Ectopic Multiple Live Births # Outcome Date GA Lbr Rinku/2nd Weight Sex Type Anes PTL Lv 1 Current Current Medications: has a current medication list which includes the following prescription(s): mv-min-fe fum-fa-dha and promethazine. Medical History: Active Ambulatory Problems Diagnosis Date Noted No Active Ambulatory Problems Resolved Ambulatory Problems Diagnosis Date Noted No Resolved Ambulatory Problems Past Medical History: Diagnosis Date Anxiety Epilepsy (HCC) H/O cold sores POTS (postural orthostatic tachycardia syndrome) Family History Problem Relation Name Age of Onset Heart disease Maternal Grandfather Breast cancer Paternal Grandmother Bone cancer Paternal Grandmother Social History Tobacco Use Smoking status: Not on file Smokeless tobacco: Not on file Substance Use Topics Alcohol use: Not on file Drug use: Not on file Past Surgical History: Procedure Laterality Date WISDOM TOOTH EXTRACTION No Known Allergies Vitals: Estimated body mass index is 20.92 kg/m?? as calculated from the following: Height as of this encounter: 5' 6.5 . Weight as of this encounter: 131 lb 9.6 oz. BP: 120/70 Patient's last menstrual period was 09/06/2025. Assessment/Plan Diagnoses and all orders for this visit: Missed menses - Type and screen; Future - ABO/Rh; Future - CBC and differential - Hemoglobin A1c - RPR - Rubella antibody, IgG - Hepatitis B surface antigen - Hepatitis C antibody - HIV-1 and HIV-2 antibodies - Urine culture - POCT , urine manually resulted - POCT urinalysis dipstick manually resulted , unspecified gestational age ([facility]) - Type and screen; Future - ABO/Rh; Future - CBC and differential - Hemoglobin A1c - RPR - Rubella antibody, IgG - Hepatitis B surface antigen - Hepatitis C antibody - HIV-1 and HIV-2 antibodies - Rapid drug screen, urine; Future Encounter for supervision of normal first in first trimester ([facility]) - Rapid drug screen, urine; Future Nausea - promethazine (Phenergan) 12.5 MG tablet; Take 1 tablet (12.5 mg) by mouth every 6 (six) hours if needed for nausea or vomiting for up to 30 doses Take 1 tablet by mouth every 6 hours as needed for nausea. Nurse Note: OB Intake: Patient presents today for first OB visit. Patients history has been reviewed in great detail including any potential risks. Patient signed consent forms and patient desires testing in both trimesters. Patient currently has no complaints and has been advised to drink 6-8 glasses of water a day, eatno raw or undercooked meat, and stay away from [facility]. Patient has also been advised to not change litter boxes and eat 6 small meals a day. Patient has been consulted regarding the do's and don'ts ofpregnancy. Patient was given labs and all questions and concerns were answered. Patient does have nausea some tingled emesis today, advised to monitor if worsen head for evaluation. Patient does have some back pain, reassured can use heat and Tylenol to help this. Patient given [place] paperwork to have completed with initial labs at 9 weeks. Patient was given list of safe meds for Anxietyfor her counselor. Urine sent for Culture due to back pain and abnormal urine results. Follow Up: Patient is to return in 4 weeks for routine OB appointment. Follow Up: Patient is to have labs drawn at directed and return to office for initial OB appointment with provider. Patient may call office as needed with any concerns or questions. Nurse Visit Completed by: Fanny Gaspar LPN documented in this encounter Plan of Treatment DateTypeDepartmentCare Team (Latest Contact Info)Pjqwuhoxhzr71/06/2026 9:50 AM ESTRoutine [facility] [address] [place] [address] Sathya Huffman DO [address] [place], [place] [id number] NameTypePriorityAssociated DiagnosesOrder ScheduleType and screenLabRoutine Missed menses , unspecified gestational age ([facility]) Expected: 11/02/2025 (Approximate), Expires: 6ABO/RhLabRoutine Missed menses , unspecified gestational age ([facility]) Expected: 11/02/2025 (Approximate), Expires: 6CBC and differentialLab Routine Missed menses , unspecified gestational age ([facility]) Ordered: 11/02/2025Hemoglobin L9oPvcHtrghur Missed menses , unspecified gestational age ([facility]) Ordered: 11/02/2025RPRLabRoutine Missed menses , unspecified gestational age ([facility]) Ordered: 11/02/2025Rubella antibody, IgGLabRoutine Missed menses , unspecified gestational age ([facility]) Ordered: 11/02/2025Hepatitis B surface antigenLabRoutine Missed menses , unspecified gestational age ([facility]) Ordered: 11/02/2025Hepatitis C antibodyLabRoutine Missed menses , unspecified gestational age ([facility]) Ordered: 11/02/2025HIV-1 and HIV-2 antibodiesLabRoutine Missed menses , unspecified gestational age ([facility]) Ordered: 11/02/2025Urine cultureMicrobiologyRoutine Missed menses Ordered: 11/02/2025Rapid drug screen, urineLabRoutine , unspecified gestational age ([facility]) Encounter for supervision of normal first in first trimester ([facility]) Expected: 11/02/2025 (Approximate), Expires: 11/02/2026Urine cultureMicrobiology Routine Hematuria, unspecified type Ordered: 11/02/2025documented as of this encounter Procedures Procedure NamePriorityDate/TimeAssociated DiagnosisCommentsPOCT , URINE Vkxcowg4311/02/2025 9:34 AM EST Missed menses POCT URINALYSIS YNIFTFVEUenmzfg80/05/2025 9:34 AM EST Missed menses documented in this encounter Results * (ABNORMAL) POCT urinalysis dipstick manually resulted (11/02/2025 9:34 AM EST) ComponentValueRef RangeTest MethodAnalysis TimePerformed AtPathologist SignatureColor, UAYellowClarity, UAClearGlucose, UANegativeNegative - 2000(110) ++++ mg/dLBilirubin, UANegativeNegative - 4(70) +++ mg/dLKetones, UA NegativeNegative - 160(16) ++++ mg/dLSpec Grav, UA1.0201 - 1.03Blood, UA PositiveNegative - 50 Rashawn/mcLpH, UA6.05 - 9Protein, UATraceNegative - 2000(20) ++++ mg/dLUrobilinogen, UA1.00.2 - 12 mg/dLLeukocytes, UANegativeNegative - 500+++ Rosibel/mcLNitrite, UANegativeNegative - PositiveSpecimen (Source) Anatomical Location / LateralityCollection Method / VolumeCollection Time Received PgunXwxir06/05/2025 9:34 AM EST Narrative Authorizing ProviderResult TypeResult StatusCorey Armida DOPOINT OF CARE TEST ENTER/EDIT ORDERABLESFinal Result * (ABNORMAL) POCT , urine manually resulted (11/02/2025 9:34 AM EST) ComponentValueRef RangeTest MethodAnalysis TimePerformed AtPathologist SignaturePreg Test, UrPositiveNegativeSpecimen (Source)Anatomical Location / LateralityCollection Method / VolumeCollection TimeReceived TimeUrine 11/02/2025 9:34 AM EST Narrative Authorizing ProviderResult TypeResult StatusCorey Armida DOPOINT OF CARE TEST ENTER/EDIT ORDERABLESFinal Result documented in this encounter Visit Diagnoses Diagnosis Missed menses , unspecified gestational age ([facility]) Encounter for supervision of normal first in first trimester ([facility]) Nausea Nausea alone Hematuria, unspecified type documented in this encounter
[2025-11-15 20:15] VITALS: BP 105/74; PULSE 111; TEMP 37.4; O2SAT 99; BMI 19.4
--- NOTE | 2025-11-15 20:47 | ED.GENADUL1 ---
HPI HPI - General Adult General Chief complaint: Abdominal Pain Stated complaint: 8 WKS PREG/ CAN'T KEEP ANYTHING DOWN X4 DAYS Time Seen by Provider: 11/15/25 20:40 Source: patient Mode of arrival: walk-in Limitations: no limitations History of Present Illness HPI narrative: This 20-year-old female who is approximately 8 weeks and being followed by Dr. Huffman presents for evaluation of nausea and vomiting. The patient has had morning sickness throughout her entire but for the past 4 days it has become more severe. Her mother states she cannot keep anything down. She has been taking Zofran but promptly vomited up. Tonight she told her mother that she felt really dizzy while lying in bed which prompted her mother to bring him to the emergency department. She is not having any abdominal pain or vaginal bleeding. She has complained of chest pain, and her mother thinks this is likely related to her vomiting. She has not had any fever or diarrhea. She is urinating but very minimally. Her mother states she is supposed to be set up with a Zofran pump tomorrow. Related Data Previous Rx's ?Medication ?Instructions ?Recorded ondansetron 4 mg disintegrating 4 mg PO Q6H PRN nausea and 10/23/25 tablet vomiting #20 tabs Allergies Allergy/AdvReac Type Severity Reaction Status Date / Time No Known Drug Allergies Allergy Verified 11/15/25 20:14 Opioid HPI Opioid Management Most Recent Opioid Data: Last Pain Scale 4 Today, 20:15 Review of Systems ROS Status of ROS 10 or more systems reviewed and unremarkable except as noted in history and below PFSH PFSH Social History Little interest or pleasure in doing things: not at all Feeling down, depressed, or hopeless: not at all Exam Narrative Exam Narrative: Vital signs and Nursing Notes reviewed: Patient's temperature is mildly elevated 99.3, she has tachycardic with a pulse of 111, she has a stable blood pressure 105/74 and is not hypoxic with pulse ox of 99% on room air General: Awake, alert, oriented, thin and comfortable appearing female, no respiratory distress, no active vomiting HEENT: Normocephalic atraumatic, mucous membranes are pink and dry, lips are cracked Chest: Lungs are clear to auscultation with good air entry, there is no wheezing rhonchi or rales appreciated no accessory muscle use, patient is speaking in complete sentences-no chest wall tenderness to palpation CVS: Regular rate and rhythm S1-S2, tachycardic at 115 no murmurs rubs or gallops, pulses are brisk and equal bilaterally ABD: Soft, flat, nondistended, nontender, no rebound guarding or rigidity, bowel sounds are normal Extremities: Moving all extremities, no lower extremity tenderness or swelling noted Skin: Normal in appearance without rash,pallor, petechiae or purpura Neuro: No focal deficits Constitutional Vital Signs, click to edit/add: Last Vital Signs Temp 99.3 F 11/15/25 20:15 Pulse 100 H 11/15/25 22:59 Resp 18 11/15/25 22:59 BP 123/66 11/15/25 22:59 Pulse Ox 100 11/15/25 22:59 O2 Del Method Room Air 11/15/25 20:15 Course Vital Signs Vital signs: Vital Signs Temperature 99.3 F 11/15/25 20:15 Pulse Rate 111 H 11/15/25 20:15 Respiratory Rate 118 H 11/15/25 20:15 Blood Pressure 105/74 11/15/25 20:15 Pulse Oximetry 99 11/15/25 20:15 Oxygen Delivery Method Room Air 11/15/25 20:15 Temperature 99.3 F 11/15/25 20:15 Pulse Rate 100 H 11/15/25 22:59 Respiratory Rate 18 11/15/25 22:59 Blood Pressure 123/66 11/15/25 22:59 Pulse Oximetry 100 11/15/25 22:59 Oxygen Delivery Method Room Air 11/15/25 20:15 Medical Decision Making [facility] Narrative Medical decision making narrative: This 20-year-old female who is approximately 8 weeks and has been having nausea and vomiting throughout her is brought to the emergency department by her mother for worsening nausea and vomiting for the past 4 days. The mother states that she was laying in bed tonight and despite taking Zofran she was unable to keep any fluids or solids down and complained that she was feeling dizzy which prompted her to bring her to the hospital. In emergency department she is mildly tachycardic with dry lips. Her abdomen is soft. She is not having any abdominal pain vaginal bleeding or other OB related symptoms. An IV was placed and she was medicated with IV fluids, Zofran and Pepcid. On reevaluation she appears to be feeling somewhat better and is tolerating ice chips. She was given a liter of normal saline and D5 LR. Routine labs are reviewed. She has a normal white count and stable hemoglobin. Electrolytes are normal. Her CO2 is normal at 25.2. After the liter of normal saline she was able to urinate. Her urine is positive for ketones but negative for infection. She was remedicated with a dose of Zofran and Tylenol as she complained of a headache. She tolerated ice chips and a popsicle. She will be discharged home to follow-up closely with her CUSTOMS MANAGER. Lab Data Lab results reviewed: Yes I reviewed the patient's lab results Labs: Lab Results 11/15/25 11/15/25 Range/Units 20:40 22:17 WBC 6.1 (4.0-11.0) 10^3/uL RBC 4.21 (4.20-5.40) 10^6/uL Hgb 12.9 (12.0-16.0) g/dL Hct 36.5 (36.0-48.0) % MCV 86.7 (81.0-99.0) fL MCH 30.6 (26.7-34.0) pg MCHC 35.3 H (29.9-35.2) g/dL RDW 11.7 (11.0-15.0) % Plt Count 202 (150-450) 10^3/uL MPV 10.6 (9.5-13.5) fL Seg Neuts % (Manual) 82.0 H (43.0-75.0) Lymphocytes % (Manual) 7.0 L (20.5-60.0) % Monocytes % (Manual) 11.0 (1.7-12.0) % Eosinophils % (Manual) 0.0 L (0.9-7.0) % Basophils % (Manual) 0.0 L (0.2-2.0) % Neutrophils # (Manual) 5.00 (1.4-6.5) 10^3/uL Lymphocytes # (Manual) 0.42 L (1.20-3.80) 10^3/uL Monocytes # (Manual) 0.67 (0.30-0.80) 10^3/uL Eosinophils # (Manual) 0.00 (0.00-0.70) 10^3/uL Basophils # (Manual) 0.00 (0.00-0.10) 10^3/uL Sodium 132 L (136-145) mmol/L Potassium 3.8 (3.5-5.1) mmol/L Chloride 99 (98-107) mmol/L Carbon Dioxide 25.2 (21.0-32.0) mmol/L Anion Gap 11.6 BUN 6.0 L (7.0-18.0) mg/dL Creatinine 0.66 (0.55-1.02) mg/dL Est GFR ( Amer) >60 (>=60 mL/min/1.73m^2) Est GFR (Non-Af Amer) >60 (>=60 mL/min/1.73m^2) BUN/Creatinine Ratio 9.1 Glucose 95 (74-106) mg/dL Calcium 9.3 (8.5-10.1) mg/dL Total Bilirubin 0.3 (0.2-1.0) mg/dL AST 15 (15-37) U/L ALT 20 (14-59) U/L Alkaline Phosphatase 57 (46-116) U/L Total Protein 7.7 (6.4-8.2) g/dL Albumin 3.9 (3.4-5.0) g/dL Globulin 3.8 g/dL Albumin/Globulin Ratio 1.0 Urine Color Yellow (YELLOW) Urine Clarity Sl cloudy (CLEAR) Urine pH 6.0 (5.0-9.0) Ur Specific [place] 1.020 (1.005-1.025) Urine Protein Trace (NEG/TRACE) mg/dL Urine Glucose (UA) Negative (NEGATIVE) mg/dL Urine Ketones >=80 A (NEGATIVE) mg/dL Urine Occult Blood Trace-i (NEGATIVE) Urine Nitrite Negative (NEGATIVE) Urine Bilirubin Negative (NEGATIVE) Urine Urobilinogen 1.0 (0.2-1.0) EU/dL Ur Leukocyte Esterase Negative (NEGATIVE) Urine RBC 2-5 A (0-2) #/HPF Urine WBC 2-5 A (NONE SEEN) #/HPF Ur Squamous Epith Cells Moderate A (NONE/RARE) #/LPF Urine Crystals None seen (None Seen) #/HPF Urine Bacteria Moderate A (NONE SEEN) #/HPF Urine Casts None seen (NONE SEEN) #/LPF Urine Mucus Moderate A (NONE SEEN) Ur Culture [facility]icated? [facility] [place] Discharge Plan Discharge Chief Complaint: Abdominal Pain Clinical Impression: Hyperemesis gravidarum Patient Disposition: Home, Self-Care Time of Disposition Decision: 00:04 Condition: Good Prescriptions / Home Meds: No Action ondansetron 4 mg tablet,disintegrating 4 mg PO Q6H PRN (Reason: nausea and vomiting) Qty: 20 0RF Print Language: Uruguayan Instructions: Hyperemesis Gravidarum (ED) Referrals: Sathya Huffman DO [Physician, CUSTOMS MANAGER] - 1 week MIGUEL DENNEY [Primary Care Provider, Family Practice] - 1 week
[2025-11-15 20:53] LABS: Hematocrit 36.5 % (36.0-48.0); Hemoglobin 12.9 g/dL (12.0-16.0); Mean Corpuscular HGB Conc 35.3 g/dL (29.9-35.2); Mean Corpuscular Hemoglobin 30.6 pg (26.7-34.0); Mean Corpuscular Volume 86.7 fL (81.0-99.0); Platelet Count 202 10^3/uL (150-450); Red Blood Count 4.21 10^6/uL (4.20-5.40); White Blood Count 6.1 10^3/uL (4.0-11.0)
[2025-11-15] MEDS: 0.9 % SODIUM CHLORIDE 1,000 ML 1000 ML IV (20:58)
[2025-11-15] MEDS: FAMOTIDINE/PF 20 MG/2 ML VIAL IV (20:59)
[2025-11-15 21:12] LABS: Alanine Aminotransferase 20 U/L (14-59); Albumin Globulin Ratio 1.0; Albumin Level 3.9 g/dL (3.4-5.0); Alkaline Phosphatase 57 U/L (46-116); Anion Gap 11.6; Aspartate Amino Transferase 15 U/L (15-37); Blood Urea Nitrogen 6.0 mg/dL (7.0-18.0); Calcium 9.3 mg/dL (8.5-10.1); Carbon Dioxide 25.2 mmol/L (21.0-32.0); Chloride 99 mmol/L (98-107); Estimated GFR (African America >60 (>=60 mL/min/1.73m^2); Estimated GFR (Non-African Ame >60 (>=60 mL/min/1.73m^2); Globulin 3.8 g/dL; Glucose 95 mg/dL (74-106); Potassium 3.8 mmol/L (3.5-5.1); Sodium 132 mmol/L (136-145); Total Protein 7.7 g/dL (6.4-8.2)
[2025-11-15 21:13] LABS: Basophils Abs Manual 0.00 10^3/uL (0.00-0.10); Basophils Percent Manual 0.0 % (0.2-2.0); Eosinophils Absolute Manual 0.00 10^3/uL (0.00-0.70); Eosinophils Percent Manual 0.0 % (0.9-7.0); Lymphocytes Absolute Manual 0.42 10^3/uL (1.20-3.80); Lymphocytes Percent Manual 7.0 % (20.5-60.0); Monocytes Absolute Manual 0.67 10^3/uL (0.30-0.80); Monocytes Percent Manual 11.0 % (1.7-12.0); Segmented Neut Absolute Manual 5.00 10^3/uL (1.4-6.5); Segmented Neutrophils % Manual 82.0 (43.0-75.0)
--- OUTSIDE RECORDS SUMMARY | 2025-11-15 21:56 | XMS_ITS | Encounter Summary ---
Author Organization [facility] Address [address] [place] [address] Care Team Providers Care Administrative Hearing Officer Name Role Phone Unavailable Primary Care Provider Unavailabl e Encounter Details DateTypeDepartmentCare Team (Latest Contact Info)Wsjnjtlujbf23/15/2025bstract ELIZ VELASCO [facility] [place] [address] [place] [address] Sathya Huffman, DO [address], [id number] Social History Tobacco UseTypesPacks/DayYears UsedDateSmoking Tobacco: Never Assessed Estimated Date of AzzrjczcWomttxsiStd74/27/2026Based on Ultrasound, FHR-124Sex and Gender InformationValueDate RecordedSex Assigned at BirthNot on fileLegal NypMtronq73/15/2023 11:46 PM EDTGender IdentityNot on fileSexual OrientationNot on filedocumented as of this encounter Plan of Treatment DateTypeDepartmentCare Team (Latest Contact Info)Kdlxfrrumad25/06/2026 9:50 AM ESTRoutine ELIZ VELASCO [address] [place] [address] Sathya Huffman, DO [address], [facility] documented as of this encounter Visit Diagnoses Not on filedocumented in this encounter
--- OUTSIDE RECORDS SUMMARY | 2025-11-15 21:56 | XMS_ITS | Clinical Summary ---
Author Organization [facility] Address [address] [place] [address] Care Team Providers Care Electrophysiology Technician Name Role Phone Unavailable Primary Care Provider Unavailabl e Allergies No known active allergies Medications MedicationSigDispense QuantityRefillsLast FilledStart DateEnd DateStatus MV-Min-Fe Fum-FA-DHA ( 1 PO) Take 1 tablet by mouth DailyActive promethazine (Phenergan) 12.5 MG tablet Indications:NauseaTake 1 tablet (12.5 mg) by mouth every 6 (six) hours if needed for nausea or vomiting for up to 30 doses Take 1 tablet by mouth every 6 hours as needed for nausea. 30 tablet tive Encounters DateTypeDepartmentCare VsozJcacjnilrgg92/15/2025bstract [facility] [address] [place] [address] Sathya Huffman, DO 11/12/2025bstract [facility] [address] [facility] [place] [address] Sathya Huffman, DO 11/12/2025Telephone [facility] [address] [place] [address] Sathya Huffman, DO 11/02/2025 9:30 AM [place] [phone] GA: 6w4d11/02/2025 9:00 AM ESTAncillary Procedure [facility] [address] [place] [phone] Missed menses; Positive urine test ([facility])11/02/2025External Result Encounter [facility] External Department Unsolicited Sathya Huffman DO from Last 3 Months Family History Medical HistoryRelationNameCommentsHeart diseaseMaternal GrandfatherBone cancer Paternal GrandmotherBreast cancerPaternal GrandmotherRelationNameStatusComments Maternal GrandfatherPaternal Grandmother Social History Tobacco UseTypesPacks/DayYears UsedDateSmoking Tobacco: Never Assessed Estimated Date of PlxxclacSnnsodnqKif69/27/2026ased on Ultrasound, FHR-124Sex and Gender InformationValueDate RecordedSex Assigned at BirthNot on fileLegal IldHdozgr06/15/2023 11:46 PM EDTGender IdentityNot on fileSexual OrientationNot on file Last Filed Vital Signs Vital SignReadingTime TakenCommentsBlood Mfwxsqtv271/7011/02/2025 10:06 AM EST Pulse--Temperature--Respiratory Rate--Oxygen Saturation--Inhaled Oxygen Concentration--Sisajx81.7 kg (131 lb 9.6 oz)11/02/2025 10:06 AM AWMKkggcy337.9 cm (5' 6.5 )11/02/2025 10:07 AM ESTBody Mass Index20.9211/02/2025 10:06 AM EST Plan of Treatment DateTypeDepartmentCare Team (Latest Contact Info)Zjnswzmfznq36/06/2026 9:50 AM ESTRoutine [facility] [address] [place] [address] Sathya Huffman DO [address] [place], [place] [id number] Procedures Procedure NamePriorityDate/TimeAssociated DiagnosisCommentsURINARY TRACT INFECTION (HTRX)Pccjdmv9611/02/2025 10:20 AM EST POCT URINALYSIS ENWEGXLSJhtnuop73/05/2025 9:34 AM EST Missed menses POCT , RVKSWUfrsthk05/05/2025 9:34 AM EST Missed menses US OB QWFODEGHSPZUEaytoxr32/05/2025 9:23 AM EST Missed menses Positive urine test ([facility] from Last 3 Months Results * URINARY TRACT INFECTION (HTRX) (11/02/2025 10:20 AM EST)ComponentValueRef RangeTest MethodAnalysis TimePerformed AtPathologist SignatureACINETOBACTER AMBCZGLI251.961 - 24.689 ppm11/03/2025 7:38 AM ESTHealthTrackRx at [facility] ACINETOBACTER BAUMANIINot Bvmvkdle74.961 - 24.689 ppm11/03/2025 7:38 AM EST [facility] at LabPortCITROBACTER EKEZARSI872.000 - 32.015 ppm11/03/2025 7:38 AM ESTHealthTrackRx at LabPortCITROBACTER FREUNDIINot Pqnjlewe06.000 - 32.015 ppm11/03/2025 7:38 AM ESTHealthTrackRx at LabPortENTEROBACTER AEROGENES, NJWQXYT846.000 - 32.290 ppm11/03/2025 7:38 AM ESTHealthTrackRx at LabPortENTEROBACTER AEROGENES, CLOACAENot Pntyrtob11.000 - 32.290 ppm 11/03/2025 7:38 AM ESTHealthTrackRx at LabPortENTEROCOCCUS FAECALIS, FAECIUM0 26.000 - 33.043 ppm11/03/2025 7:38 AM ESTHealthTrackRx at LabPortENTEROCOCCUS FAECALIS, FAECIUMNot Quvrtylq61.000 - 33.043 ppm11/03/2025 7:38 AM EST [facility] at LabPortESCHERICHIA DTFE403.000 - 28.500 ppm11/03/2025 7:38 AM ESTHealthTrackRx at LabPortESCHERICHIA COLINot Urdzfufb13.000 - 28.500 ppm 11/03/2025 7:38 AM ESTHealthTrackRx at LabPortKLEBSIELLA PNEUMONIAE, OXYTOCA0 23.000 - 31.865 ppm12 7:38 AM ESTHealthTrackRx at LabPortKLEBSIELLA PNEUMONIAE, OXYTOCANot Pajcjxbs96.000 - 31.865 ppm11/03/2025 7:38 AM EST [facility] at LabPortMORGANELLA PBTHAKVJ233.961 - 24.689 ppm12 7:38 AM ESTHealthTrackRx at LabPortMORGANELLA MORGANIINot Vmuikuzc83.961 - 24.689 ppm11/03/2025 7:38 AM ESTHealthTrackRx at LabPortPROTEUS MIRABILIS, VULGARIS0 23.000 - 28.500 ppm11/03/2025 7:38 AM ESTHealthTrackRx at LabPortPROTEUS MIRABILIS, VULGARISNot Vgbrllss64.000 - 28.500 ppm11/03/2025 7:38 AM EST [facility] at LabPortPSEUDOMONAS PBNYFREFBY645.000 - 31.801 ppm11/03/2025 7:38 AM ESTHealthTrackRx at LabPortPSEUDOMONAS AERUGINOSANot Pzsvkevx20.000 - 31.801 ppm11/03/2025 7:38 AM ESTHealthTrackRx at LabPortSTAPHYLOCOCCUS AUREUS0 26.000 - 31.595 ppm11/03/2025 7:38 AM ESTHealthTrackRx at [facility] STAPHYLOCOCCUS AUREUSNot Gcstiack06.000 - 31.595 ppm11/03/2025 7:38 AM EST [facility] at LabPortSTREPTOCOCCUS AGALACTIAE (GROUP B STREP)026.000 - 32.435 ppm12 7:38 AM ESTHealthTrackRx at LabPortSTREPTOCOCCUS AGALACTIAE (GROUP B STREP)Not Zxqbjiue49.000 - 32.435 ppm12 7:38 AM ESTHealthTrackRx at LabPortCANDIDA ALBICANS, PARAPSILOSIS, KAEUDLCYMR213.000 - 30.347 ppm11/03/2025 7:38 AM ESTHealthTrackRx at LabPortCANDIDA ALBICANS, PARAPSILOSIS, TROPICALISNot Szaygyys97.000 - 30.347 ppm12/04/2025 7:38 AM EST [facility] LabPortCANDIDA HKSETASH820.000 - 31.618 ppm11/03/2025 7:38 AM ESTHealthTrackRx at LabPortCANDIDA GLABRATANot Vjycyjxu73.000 - 31.618 ppm 11/03/2025 7:38 AM ESTHealthTrackRx at LabPortCANDIDA AUWIOD679.000 - 30.873 ppm12 7:38 AM ESTHealthTrackRx at LabPortCANDIDA KRUSEINot Detected 23.000 - 30.873 ppm12 7:38 AM ESTHealthTrackRx at LabPortSERRATIA SPIMRTITTB722.000 - 31.581 ppm11/03/2025 7:38 AM ESTHealth[facility]Rx at [facility] SERRATIA MARCESCENSNot Hziymxzb11.000 - 31.581 ppm11/03/2025 7:38 AM EST [facility] at LabPortSTREPTOCOCCUS PYOGENES (GROUP A STREP)019.961 - 24.689 ppm11/03/2025 7:38 AM ESTHealthTrackRx at LabPortSTREPTOCOCCUS PYOGENES (GROUP A STREP)Not Acyimzfn89.961 - 24.689 ppm11/03/2025 7:38 AM ESTHealthTrackRx at LabPortSTAPHYLOCOCCUS EPIDERMIDIS, HAEMOLYTICUS, LUGDUNENSIS, SAPROPHYTICUS (TBBDZ287.961 - 24.689 ppm11/03/2025 7:38 AM ESTHealth[facility] STAPHYLOCOCCUS EPIDERMIDIS, HAEMOLYTICUS, LUGDUNENSIS, SAPROPHYTICUS (URINANot Dppdkoac09.961 - 24.689 ppm11/03/2025 7:38 AM ESTHealth[facility] STAPHYLOCOCCUS EPIDERMIDIS, HAEMOLYTICUS, LUGDUNENSIS, SAPROPHYTICUS (URINA0 19.961 - 24.689 ppm11/03/2025 7:38 AM EST[facility] STAPHYLOCOCCUS EPIDERMIDIS, HAEMOLYTICUS, LUGDUNENSIS, SAPROPHYTICUS (URINANot Zpnexefz96.961 - 24.689 ppm12/04/2025 7:38 AM ESTHealth[facility] at [facility] Specimen (Source)Anatomical Location / LateralityCollection Method / Volume Collection TimeReceived XhalImjes16/05/2025 10:20 AM EST11/03/2025 1:29 AM EST Narrative Authorizing ProviderResult TypeResult StatusCorey Armida DOLAB BLOOD ORDERABLES Final ResultPerforming OrganizationAddressCity/State/ZIP CodePhone Number [facility] [address] [address] * (ABNORMAL) POCT , urine manually resulted (11/02/2025 9:34 AM EST) ComponentValueRef RangeTest MethodAnalysis TimePerformed AtPathologist SignaturePreg Test, UrPositiveNegativeSpecimen (Source)Anatomical Location / LateralityCollection Method / VolumeCollection TimeReceived TimeUrine 11/02/2025 9:34 AM EST Narrative Authorizing ProviderResult TypeResult StatusCorey Armida DOPOINT OF CARE TEST ENTER/EDIT ORDERABLESFinal Result * (ABNORMAL) POCT urinalysis dipstick manually resulted [...] / LateralityCollection Method / VolumeCollection Time Received YjaxKddfh36/05/2025 9:34 AM EST Narrative Authorizing ProviderResult TypeResult StatusCorey Armida DOPOINT OF CARE TEST ENTER/EDIT ORDERABLESFinal Result * US OB transvaginal (11/02/2025 9:23 AM [...] ovary. ELECTRONICALLY SIGNED BY: Freddy Lagunas DO Narrative 11/15/2025 10:54 AM EST ultrasoundUS OB TRANSVAGINAL: [...] Armida DOIMG OB US PROCEDURES Final Result from Last 3 Months Insurance
--- OUTSIDE RECORDS SUMMARY | 2025-11-15 21:56 | XMS_ITS | Clinical Summary ---
Author Organization [employer] tem Address [id number] [place] [address] Care Team Providers Care Insect Control Aide Name Role Phone Bruce Reddy MD Primary Care Provider [phone] Allergies No known active allergies Medications MedicationSigDispense QuantityRefillsLast FilledStart DateEnd DateStatus ascorbic acid (VITAMIN C ORAL) Take by mouth. One tablet dailyActive levocetirizine (XYZAL) 5 mg tablet Take 1 tablet (5 mg total) by mouth every evening.Active escitalopram (LEXAPRO) 20 mg tablet Indications:AnxietyTake 1 tablet (20 mg total) by mouth in the morning. 30 tablet 5Active Active Problems ProblemNoted DateDiagnosed DateSeizure-like zgucaubl67/26/2021hildhood absence jiasboif28/19/2021 Encounters DateTypeDepartmentCare NrpfSgtbdkzhieo27/18/2025Telephone [facility] [address] [place] [phone] Emerita Fountain RMA 10/23/2025Orders Only [facility] [address] [place] [phone] External, Scanning Provider 10/23/2025Telephone [facility] [address] [place] [address] Bruce Reddy MD 10/12/2025Telephone [facility] [address] [place] [phone] Emerita Fountain RMA 10/08/2025Telephone [facility] [address] [place] [address] Bruce Reddy MD 08/23/2025Travelfrom Last 3 Months Immunizations ImmunizationAdministration DatesNext TaiEYcJ8704/15/2010,03/09/2006,07/16/2005, 05/14/2005,02/23/2005Hepatitis A1,05/07/2011Hepatitis B007/16/2005, 05/14/2005,02/23/2005,2004HiB12/02/2005,07/16/2005,05/14/2005,02/23/2005 IPV04/15/2010,07/16/2005,05/14/2005,02/23/2005Influenza, Izzlyxdrqlg14/09/2015 MMR04/15/2010,12/02/2005Meningococcal Effjytulu37/18/2022,05/27/2017Pneumococcal Nsjpdraxk77/11/2006,07/16/2005,05/14/2005,02/23/2005Tdap05/27/2017Varicella 04/15/2010,03/09/2006 Family History Medical HistoryRelationNameCommentsThyroid IssuesMaternal GrandmotherOtherSister [...] Binge DrinkingNot on file1PHQ-2AnswerDate RecordedTotal Score6 07/27/2025hildcareAnswerDate AzygzmckPbctvlpdiVdosfph30/12/2019EmploymentAnswer Date AahaibsdUdqayjahfyFqedrau84/12/2019Hunger ScreeningAnswerDate Recorded Within the past 12 months we worried whether our food would run out before we got money to buy more.Never True07/27/2025Within the past 12 months the food we bought just didn't last and we didn't have money to get more.Never True 07/27/2025Purpose - LifeAnswerDate RecordedPurpose and direction in lifeUnknown 12/24/2020CommentsNoSex and Gender InformationValueDate RecordedSex Assigned at BirthNot on fileLegal LoaFjjdku11/06/2015 12:02 PM EDTGender IdentityNot on fileSexual OrientationNot on file Last Filed Vital Signs Vital SignReadingTime TakenCommentsBlood Ixjnjxym047/6208 8:23 AM EDT Crrzn577107/27/2025 8:23 AM YVJKbdpobiokys12.7 ??C (98 ??F)07/27/2025 8:23 AM EDT Respiratory Hykq8563 12:27 AM ESTOxygen Qrmrazkfvv06%07/27/2025 8:23 AM EDTInhaled Oxygen Concentration--Ahcejp83.8 kg (134 lb)07/27/2025 8:23 AM EDT Hlblbi665.6 cm (5' 6 )07/27/2025 8:23 AM EDTBody Mass Index21.63007/27/2025 8:23 AM EDT Plan of Treatment Health MaintenanceDue DateLast DoneCommentsCOVID-19 Vaccine ( season) /, 08/05/2021Influenza Ubzlypl70/07/2015Pap Smear 2025dult BMI Agranuheh29/29/16192707/27/2025Depression Bqvczooaa95/29/2026 07/27/2025Tobacco Ipcaeaits16/29/79156707/27/2025DTaP,Tdap and Td Vaccines (7 - Td or Tdap), 04/15/2010, 04/15/2010, Additional history exists Medical Devices Not on file Procedures Procedure NamePriorityDate/TimeAssociated DiagnosisCommentsUS RETROPERITONEAL UBVQWZWUHhfcchb86/25/2025 3:56 PM ESTfrom Last 3 Months Results * Ultrasound retroperitoneal complete (10/23/2025 3:56 PM EST)Anatomical Region LateralityModalityBodyUltrasound Narrative Authorizing ProviderResult TypeResult StatusScanning Provider ExternalIMG US ORDERABLESFinal Result from Last 3 Months Insurance * Guarantor: William Rosas TypeRelation to PatientDate of BirthPhone Billing AddressPersonal/DcbyrvOtevox42/10/1983 [facility] [place] [address] * Guarantor: Esteban RosasAccograce TypeRelation to PatientDate of PhoneBilling AddressPersonal/GeqzcqYayxog19/22/1982 [facility] [place] [address] Care Teams Team MemberRelationshipSpecialtyStart DateEnd Date Bruce Reddy MD [address] [place] [address], [address] [place] [address] PCP - SiaoknhBojqqvkqbe67/26/18
--- OUTSIDE RECORDS SUMMARY | 2025-11-15 21:56 | XMS_ITS | Encounter Summary ---
Author Organization [facility] Address [address] [place] [address] Care Team Providers Care Director Of Pupil Personnel Program Name Role Phone Unavailable Primary Care Provider Unavailabl e Encounter Details DateTypeDepartmentCare Team (Latest Contact Info)Agejcpuozzl89/15/2025Telephone [facility] [address] [place] [phone] Sathya Huffman DO [address] [place], [place] [phone] Social History Tobacco UseTypesPacks/DayYears UsedDateSmoking Tobacco: Never Assessed Estimated Date of WrqqfarjDwekxyxgRsy25/27/2026Based on Ultrasound, FHR-124Sex and Gender InformationValueDate RecordedSex Assigned at BirthNot on fileLegal PjnLumipo29/15/2023 11:46 PM EDTGender IdentityNot on fileSexual OrientationNot on filedocumented as of this encounter Miscellaneous Notes * Telephone Encounter - Fanny Gaspar LPN - 11/12/2025 9:27 AM EST I am currently not able to keep down any water, any food. I am very dizzy. I am currently 8 weeks . And I was wondering if I was able to come in and get checked out so we can figure out something to do. If you could give me a call back at [phone], that would be great. Thank you and I hope you guys enjoy the rest of your day. Patient states that she does have zofran and she will take this and then 5 mins later throw it up. Patient was encouraged to pickle pumper the phenergan which was called in for her and that she should report for eval as she could be dehydrated and need fluids. PVU she was advised [employer] form will be sent in for Zofran pump. documented in this encounter Plan of Treatment DateTypeDepartmentCare Team (Latest Contact Info)Wmjuetpcdnb52/06/2026 9:50 AM ESTRoutine [facility] [address] [place] [address] Sathya Huffman DO [address] [place], [place] [phone] documented as of this encounter Visit Diagnoses Not on filedocumented in this encounter
--- OUTSIDE RECORDS SUMMARY | 2025-11-15 21:56 | XMS_ITS | Encounter Summary ---
Author Organization [facility] Address [address] [place] [address] Care Team Providers Care Wedding Designer Name Role Phone Unavailable Primary Care Provider Unavailabl e Encounter Details DateTypeDepartmentCare Team (Latest Contact Info)Gypzdtxtjam03/15/2025bstract [facility] [place] [address] Sathya Huffman, DO [address] [place], [facility] Social History Tobacco UseTypesPacks/DayYears UsedDateSmoking Tobacco: Never Assessed Estimated Date of QugxfcoiShgsxyeiYej77/27/2026Based on Ultrasound, FHR-124Sex and Gender InformationValueDate RecordedSex Assigned at BirthNot on fileLegal HxjPteraa32/15/2023 11:46 PM EDTGender IdentityNot on fileSexual OrientationNot on filedocumented as of this encounter Plan of Treatment DateTypeDepartmentCare Team (Latest Contact Info)Lwfvsxejumx04/06/2026 9:50 AM ESTRoutine [facility] [address] [place] [address] Sathya Huffman, DO [address], [facility] documented as of this encounter Visit Diagnoses Not on filedocumented in this encounter
--- OUTSIDE RECORDS SUMMARY | 2025-11-15 21:56 | XMS_ITS | Encounter Summary ---
Author Organization [facility] Address [id number] [address] [place] [address] Care Team Providers Care Rural Electrification Engineer Name Role Phone Bruce Reddy MD Primary Care Provider [phone] Encounter Details DateTypeDepartmentCare Team (Latest Contact Info)Disrvdlxomj47/18/2025Telephone [facility] [address] [place] [address] Emerita Fountain RMA Social History Tobacco UseTypesPacks/DayYears UsedDateSmoking Tobacco: NeverPassive Smoke Exposure: NeverSmokeless Tobacco: NeverAlcohol UseStandard Drinks/WeekComments Never0 (1 standard drink = 0.6 oz pure alcohol)AUDIT-CAnswerDate RecordedQ1: How often do you have a drink containing alcohol?Never12/30/2020verage Number of DrinksNot on file12/30/2020Frequency of Binge DrinkingNot on file1PHQ-2 AnswerDate RecordedTotal Swspn500/29/2025ChildcareAnswerDate RecordedChildcare Jhylauu0505/10/2019EmploymentAnswerDate TxjajdmjBcraijgrjlWohtxvk16/12/2019Hunger ScreeningAnswerDate RecordedWithin the past 12 months we worried whether our food would run out before we got money to buy more.Never True07/27/2025Within the past 12 months the food we bought just didn't last and we didn't have money to get more.Never True07/27/2025Purpose - LifeAnswerDate RecordedPurpose and direction in pggsFakiydy73/26/2021CommentsNoSex and Gender Information ValueDate RecordedSex Assigned at BirthNot on fileLegal IitRdvgxz92/06/2015 12:02 PM EDTGender IdentityNot on fileSexual OrientationNot on filedocumented as of this encounter Miscellaneous Notes * Telephone Encounter - ERIN Borges - 11/15/2025 11:07 AM EST Patient called asking if she could get a work excuse from today until 11/20. She isn't able to keepanything down. Dr. Huffman is putting her on a phenergan pump and iv fluids. She states she has askedfor a work note but doesn't get an answer from the office or a note. * Telephone Encounter - Bruce Reddy MD - 11/15/2025 11:07 AM EST A work note is fine for her. One cannot functionally work when experiencing intractable vomiting. * Telephone Encounter - Alla Gonzalez - 11/15/2025 11:07 AM EST Patient note typed and patient called to let her know she is able to pick it up at her earliest convenience. She was appreciative of the call documented in this encounter Plan of Treatment Not on file documented as of this encounter Visit Diagnoses Not on filedocumented in this encounter Additional Health Concerns AssessmentNoted TimePHQ-9 Depression Total Score: 6007/27/2025 8:20 AM EDT documented as of this encounter Care Teams Team MemberRelationshipSpecialtyStart DateEnd Date Bruce Reddy MD [address] [place] [address], [address] [place] [address] PCP - FguljhhOoploqfhks11/26/18documented as of this encounter
--- OUTSIDE RECORDS SUMMARY | 2025-11-15 21:56 | XMS_ITS | Encounter Summary ---
Author Organization [facility] Address [address] [place] [address] Care Team Providers Care Camera Systems Engineer Name Role Phone Unavailable Primary Care Provider Unavailabl e Encounter Details DateTypeDepartmentCare Team (Latest Contact Info)Hiutvvcyigf98/05/2025External Result Encounter [facility] Unsolicited Sathya Huffman, [address] [place], [place] [id number] Social History Tobacco UseTypesPacks/DayYears UsedDateSmoking Tobacco: Never Assessed Estimated Date of CalcwgwkKldznpauNuq01/27/2026ased on Ultrasound, FHR-124Sex and Gender InformationValueDate RecordedSex Assigned at BirthNot on fileLegal DbjWcresv73/15/2023 11:46 PM EDTGender IdentityNot on fileSexual OrientationNot on filedocumented as of this encounter Plan of Treatment DateTypeDepartmentCare Team (Latest Contact Info)Theydannzqo29/06/2026 9:50 AM ESTRoutine [facility] [address] [place] [address] Sathya Huffman DO [address] [place] [address] documented as of this encounter Procedures Procedure NamePriorityDate/TimeAssociated DiagnosisCommentsURINARY TRACT INFECTION (HTRX)Kqtcbgu4711/02/2025 10:20 AM EST documented in this encounter Results * URINARY TRACT INFECTION (HTRX) (11/02/2025 10:20 AM EST)ComponentValueRef RangeTest MethodAnalysis TimePerformed AtPathologist SignatureACINETOBACTER ZZUAVAZQ830.961 - 24.689 ppm11/03/2025 7:38 AM ESTHealth[facility] ACINETOBACTER BAUMANIINot Xmjumxxk92.961 - 24.689 ppm11/03/2025 7:38 AM EST [facility] at LabPortCITROBACTER PHWFOHZV049.000 - 32.015 ppm11/03/2025 7:38 AM ESTHealthTrackRx at LabPortCITROBACTER FREUNDIINot Kvaapouj53.000 - 32.015 ppm11/03/2025 7:38 AM ESTHealthTrackRx at LabPortENTEROBACTER AEROGENES, JCBUDUA796.000 - 32.290 ppm11/03/2025 7:38 AM ESTHealthTrackRx at LabPortENTEROBACTER AEROGENES, CLOACAENot Ldpijumw81.000 - 32.290 ppm 11/03/2025 7:38 AM ESTHealthTrackRx at LabPortENTEROCOCCUS FAECALIS, FAECIUM0 26.000 - 33.043 ppm11/03/2025 7:38 AM ESTHealthTrackRx at LabPortENTEROCOCCUS FAECALIS, FAECIUMNot Dvjikgfj33.000 - 33.043 ppm11/03/2025 7:38 AM EST [facility] at LabPortESCHERICHIA DCWY505.000 - 28.500 ppm11/03/2025 7:38 AM ESTHealthTrackRx at LabPortESCHERICHIA COLINot Rzfcromc63.000 - 28.500 ppm 11/03/2025 7:38 AM ESTHealthTrackRx at LabPortKLEBSIELLA PNEUMONIAE, OXYTOCA0 23.000 - 31.865 ppm11/03/2025 7:38 AM ESTHealthTrackRx at LabPortKLEBSIELLA PNEUMONIAE, OXYTOCANot Dzowirqn50.000 - 31.865 ppm11/03/2025 7:38 AM EST [facility] LabPortMORGANELLA HFKWFDJC146.961 - 24.689 ppm11/03/2025 7:38 AM ESTHealthTrackRx at LabPortMORGANELLA MORGANIINot Xkandjkx29.961 - 24.689 ppm11/03/2025 7:38 AM ESTHealthTrackRx at LabPortPROTEUS MIRABILIS, VULGARIS0 23.000 - 28.500 ppm11/03/2025 7:38 AM ESTHealthTrackRx at LabPortPROTEUS MIRABILIS, VULGARISNot Mseejrwp88.000 - 28.500 ppm11/03/2025 7:38 AM EST [facility] at LabPortPSEUDOMONAS KOSUHNWKUH058.000 - 31.801 ppm12 7:38 AM ESTHealthTrackRx at LabPortPSEUDOMONAS AERUGINOSANot Cfwqyouh54.000 - 31.801 ppm11/03/2025 7:38 AM ESTHealthTrackRx at LabPortSTAPHYLOCOCCUS AUREUS0 26.000 - 31.595 ppm11/03/2025 7:38 AM EST[facility] STAPHYLOCOCCUS AUREUSNot Hekomuwt99.000 - 31.595 ppm11/03/2025 7:38 AM EST [facility] at LabPortSTREPTOCOCCUS AGALACTIAE (GROUP B STREP)026.000 - 32.435 ppm11/03/2025 7:38 AM ESTHealthTrackRx at LabPortSTREPTOCOCCUS AGALACTIAE (GROUP B STREP)Not Ryixmxwk42.000 - 32.435 ppm11/03/2025 7:38 AM ESTHealthTrackRx at LabPortCANDIDA ALBICANS, PARAPSILOSIS, JKPYGODQSC565.000 - 30.347 ppm11/03/2025 7:38 AM ESTHealth[facility]Rx at LabPortCANDIDA ALBICANS, PARAPSILOSIS, TROPICALISNot Coavovyn23.000 - 30.347 ppm12 7:38 AM EST [facility]PortCANDIDA WYDXNGPD508.000 - 31.618 ppm11/03/2025 7:38 AM ESTHealthTrackRx at LabPortCANDIDA GLABRATANot Kccxtoig63.000 - 31.618 ppm 11/03/2025 7:38 AM ESTHealthTrackRx at LabPortCANDIDA AVPDSP971.000 - 30.873 ppm11/03/2025 7:38 AM ESTHealthTrackRx at LabPortCANDIDA KRUSEINot Detected 23.000 - 30.873 ppm11/03/2025 7:38 AM ESTHealthTrackRx at LabPortSERRATIA RAZFNONYPM062.000 - 31.581 ppm11/03/2025 7:38 AM EST[facility] SERRATIA MARCESCENSNot Tjdshmlv58.000 - 31.581 ppm11/03/2025 7:38 AM EST [facility] LabPortSTREPTOCOCCUS PYOGENES (GROUP A STREP)019.961 - 24.689 ppm11/03/2025 7:38 AM ESTHealth[facility]Rx at LabPortSTREPTOCOCCUS PYOGENES (GROUP A STREP)Not Skmgamiy06.961 - 24.689 ppm11/03/2025 7:38 AM ESTHealthTrackRx at LabPortSTAPHYLOCOCCUS EPIDERMIDIS, HAEMOLYTICUS, LUGDUNENSIS, SAPROPHYTICUS (JGABG392.961 - 24.689 ppm11/03/2025 7:38 AM EST[facility] STAPHYLOCOCCUS EPIDERMIDIS, HAEMOLYTICUS, LUGDUNENSIS, SAPROPHYTICUS (URINANot Mulnddrg34.961 - 24.689 ppm11/03/2025 7:38 AM [facility] STAPHYLOCOCCUS EPIDERMIDIS, HAEMOLYTICUS, LUGDUNENSIS, SAPROPHYTICUS (URINA0 19.961 - 24.689 ppm11/03/2025 7:38 AM [facility] STAPHYLOCOCCUS EPIDERMIDIS, HAEMOLYTICUS, LUGDUNENSIS, SAPROPHYTICUS (URINANot Myzkqyhr13.961 - 24.689 ppm11/03/2025 7:38 AM EST[facility] Specimen (Source)Anatomical Location / LateralityCollection Method / Volume Collection TimeReceived FxugKbbjw32/05/2025 10:20 AM EST11/03/2025 1:29 AM EST Narrative Authorizing ProviderResult TypeResult StatusCorey Armida DOLAB BLOOD ORDERABLES Final ResultPerforming OrganizationAddressCity/State/ZIP CodePhone Number [facility] [place] [id number] [address], [facility] documented in this encounter Visit Diagnoses Not on filedocumented in this encounter
[2025-11-15] MEDS: DEXTROSE 5%-LACTATED RINGERS 1,000 ML 150 ML IV (21:59)
[2025-11-15 22:25] LABS: Glucose Urine UA NEGATIVE (NEGATIVE)
[2025-11-15 22:33] LABS: Cast Seen? NONE SEEN #/LPF (NONE SEEN); Crystals Seen? None Seen #/HPF (None Seen); Urine Culture Indicated YES-FRMC
[2025-11-15 22:59] VITALS: BP 123/66; PULSE 100; O2SAT 100
[2025-11-15] MEDS: ONDANSETRON 4 MG RAPDIS TABLET SL (23:30)
[2025-11-16 00:33] VITALS: BP 117/70; PULSE 104; TEMP 37.3; O2SAT 98
[2025-11-16] MEDS: ACETAMINOPHEN 325 MG TABLET 650 MG PO (00:35)
--- NOTE | 2025-11-16 00:48 | PC.NURSE ---
i gave this patient verbal and written discharge orders along with 1 work note and this patient voices yes to understanding these. at time of discharge this patient voices no concerns, needs and shows no shows no signs of distress
== END 2025-11-16 00:46 | disposition home or self-care (01) ==
PROVIDERS: Emergency Provider Emergency Medicine; PCP Internal Medicine
DX: O21.0 Mild hyperemesis gravidarum (principal); Z3A.08 8 weeks gestation of pregnancy
CPT/HCPCS: 36415; 80053; 81001; 85007; 85027; 87086; 96361; 96365; 96366; 96375; 99284; J2405; J3490; Q0162